=== PATIENT | female | born 1950 | race Caucasian/White ===

== ENCOUNTER 2018-08-17 23:09 | Inpatient (IN) | payer BC, MEDICARE ==
[2018-08-17] MEDS ORDERED: SODIUM CHLORIDE 0.9% 1,000 ML IV STA (23:22)
[2018-08-17] MEDS ORDERED: DILTIAZEM DRIP BOLUS FROM BAG 1 MG SOLN IV ONE (23:22)
--- NOTE | 2018-08-17 23:33 | ED ---
General Adult HPI <Kade Duarte - Last Filed: 08/18/18 03:07> - General Source: EMS, RN notes reviewed, old records reviewed Mode of arrival: EMS Limitations: no limitations <Octavio Jha - Last Filed: 08/18/18 21:57> - General Chief complaint: Shortness of Breath Stated complaint: MAT Time Seen by Provider: 08/17/18 23:21 - History of Present Illness Initial comments: This is a 68-year-old female the ER for evaluation. Patient presents today for evaluation regarding shortness of breath. Patient has had some febrile illness for a few days now. Occasional difficulty or decreased appetite. No nausea or vomiting noted. Patient denies any chest pain. She has history of A. fib does no palpitations currently with elevated heart rate. No recent change in medications. Patient does not take her medications for A. fib with RVR. She chooses not to take these medications. No current fever. No diarrhea (Octavio Jha) - Related Data Previous Rx's Medication Instructions Recorded Flecainide [Tambocor] 50 mg PO Q12HR #180 tab 06/13/16 Metoprolol Tartrate [Lopressor] 25 mg PO TID #270 tab 06/13/16 Allergies Allergy/AdvReac Type Severity Reaction Status Date / Time No Known Allergies Allergy Verified 08/17/18 23:29 Review of Systems ROS Other: All systems not noted in ROS Statement are negative. <Kade Duarte - Last Filed: 08/18/18 03:07> ROS Other: All systems not noted in ROS Statement are negative. <Octavio Jha - Last Filed: 08/18/18 21:57> ROS Statement: Those systems with pertinent positive or pertinent negative responses have been documented in the HPI. 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, IRREG HEART BEAT AT TIMES, 2013 CAME IN WITH RECTAL BLEEDING -COLONOSCOPY WAS NEG-NO PROBLEM SINCE History of Any Multi-Drug Resistant Organisms: None Reported Past Surgical History: Tonsillectomy Additional Past Surgical History / Comment(s): COLONOSCOPY Past Anesthesia/Blood Transfusion Reactions: No Reported Reaction Past Psychological History: No Psychological Hx Reported Smoking Status: Never smoker Past Alcohol Use History: None Reported Past Drug Use History: None Reported - Past Family History Father Family Medical History: Pneumonia Additional Family Medical History / Comment(s): WHEN PT WAS 7 Mother Family Medical History: Cancer Additional Family Medical History / Comment(s): BREAST CANCER AT AGE 79 THEN AT AGE 93 DEVELOPED CHF, LIVED TILL AGE 97 Sister(s) Family Medical History: Cancer Additional Family Medical History / Comment(s): BREAST CANCER AGE 42- BUT FROM LUNG CANCER(ASBESTOES EXPOSURE) <Octavio Jha - Last Filed: 08/18/18 21:57> General Exam Limitations: no limitations General appearance: alert, in no apparent distress Head exam: Present: atraumatic, normocephalic, normal inspection Eye exam: Present: normal appearance, PERRL, EOMI. Absent: scleral icterus, conjunctival injection, periorbital swelling ENT exam: Present: normal exam, mucous membranes moist Neck exam: Present: normal inspection. Absent: tenderness, meningismus, lymphadenopathy Respiratory exam: Present: normal lung sounds bilaterally. Absent: respiratory distress, wheezes, rales, rhonchi, stridor Cardiovascular Exam: Present: tachycardia, irregular rhythm, normal heart sounds. Absent: systolic murmur, diastolic murmur, rubs, gallop, clicks GI/Abdominal exam: Present: soft, tenderness (Right upper quadrant), normal bowel sounds. Absent: distended, guarding, rebound, rigid Extremities exam: Present: normal inspection, full ROM, normal capillary refill. Absent: tenderness, pedal edema, joint swelling, calf tenderness Back exam: Present: normal inspection Neurological exam: Present: alert, oriented X3, CN II-XII intact Psychiatric exam: Present: normal affect, normal mood Skin exam: Present: warm, dry, intact, normal color. Absent: rash <Octavio Jha - Last Filed: 08/18/18 21:57> Vital Signs 08/17/18 08/17/18 08/18/18 23:20 23:21 00:25 Temperature 97.0 F L Pulse Rate 120 H 107 H Pulse Rate [ Plant Technician ] Respiratory 20 20 18 Rate Blood Pressure 110/71 107/73 Blood Pressure [Right Arm] O2 Sat by Pulse 97 96 Oximetry 08/18/18 08/18/18 08/18/18 00:57 01:28 01:33 Temperature 97.7 F Pulse Rate 114 H 104 H Pulse Rate [ 91 Plant Technician ] Respiratory 18 20 20 Rate Blood Pressure 96/71 100/56 Blood Pressure 101/79 [Right Arm] O2 Sat by Pulse 96 97 97 Oximetry 08/18/18 08/18/18 08/18/18 02:22 02:43 02:48 Temperature 96.9 F L Pulse Rate 83 101 H Pulse Rate [ Plant Technician ] Respiratory 19 26 H 26 H Rate Blood Pressure 99/65 75/56 Blood Pressure [Right Arm] O2 Sat by Pulse 95 98 Oximetry 08/18/18 08/18/18 02:51 03:07 Temperature Pulse Rate 79 78 Pulse Rate [ Plant Technician ] Respiratory 22 19 Rate Blood Pressure 101/68 96/61 Blood Pressure [Right Arm] O2 Sat by Pulse 98 97 Oximetry EKG Findings - EKG Comments: EKG Findings:: EKG shows a flutter rate of 119, QRS 70, QTc 396 <Octavio Jha - Last Filed: 08/18/18 21:57> Medical Decision Making - Lab Data Result diagrams: 08/17/18 23:20 08/17/18 23:20 <Kade Duarte - Last Filed: 08/18/18 03:07> - Lab Data Result diagrams: 08/18/18 06:17 08/18/18 06:17 - Radiology Data Radiology results: report reviewed (Chest x-ray negative, ultrasound gallbladder positive cholecystitis), image reviewed <Octavio Jha - Last Filed: 08/18/18 21:57> - Medical Decision Making Prior to patient being transferred to the floor, was informed by nursing staff that the patient was having episodes of hypotension. I requested that the sepsis fluid bolus be completed, had the lactic acid added to the labs, and then discussed the case with the medical orderly and with the shook machine operator. ( Kade Duarte) This is a female the ER for evaluation of shortness of breath. In A. fib with RVR. Patient is symptoms are,. By having also positive acute cholecystitis. We'll admit on IV antibiotics (Octavio Jha) - Lab Data Lab Results 08/17/18 08/17/18 08/17/18 Range/Units 23:20 23:20 23:20 WBC 10.5 (3.8-10.6) k/uL RBC 4.82 (3.80-5.40) m/uL Hgb 14.4 (11.4-16.0) gm/dL Hct 44.1 (34.0-46.0) % MCV 91.6 (80.0-100.0) fL MCH 29.9 (25.0-35.0) pg MCHC 32.7 (31.0-37.0) g/dL RDW 13.8 (11.5-15.5) % Plt Count 249 (150-450) k/uL Neutrophils % 64 % Lymphocytes % 27 % Monocytes % 6 % Eosinophils % 1 % Basophils % 1 % Neutrophils # 6.7 (1.3-7.7) k/uL Lymphocytes # 2.8 (1.0-4.8) k/uL Monocytes # 0.6 (0-1.0) k/uL Eosinophils # 0.2 (0-0.7) k/uL Basophils # 0.1 (0-0.2) k/uL Hypochromasia Slight PT (9.0-12.0) sec INR (<1.2) APTT (22.0-30.0) sec Sodium 139 (137-145) mmol/L Potassium 4.8 (3.5-5.1) mmol/L Chloride 107 (98-107) mmol/L Carbon Dioxide 19 L (22-30) mmol/L Anion Gap 13 mmol/L BUN 20 H (7-17) mg/dL Creatinine 0.91 (0.52-1.04) mg/dL Est GFR (CKD-EPI)AfAm 74 (>60 ml/min/1.73 sqM) Est GFR (CKD-EPI)NonAf 65 (>60 ml/min/1.73 sqM) Glucose 158 H (74-99) mg/dL Calcium 8.9 (8.4-10.2) mg/dL Magnesium 2.3 (1.6-2.3) mg/dL Total Bilirubin 1.4 H (0.2-1.3) mg/dL AST 254 H (14-36) U/L ALT 163 H (9-52) U/L Alkaline Phosphatase 239 H (38-126) U/L Total Creatine Kinase 46 (30-135) U/L CK-MB (CK-2) 0.3 (0.0-2.4) ng/mL CK-MB (CK-2) Rel Index 0.7 Troponin I <0.012 (0.000-0.034) ng/mL Total Protein 7.2 (6.3-8.2) g/dL Albumin 3.9 (3.5-5.0) g/dL Lipase (23-300) U/L TSH 7.680 H (0.465-4.680) mIU/L 08/17/18 08/17/18 Range/Units 23:20 23:20 WBC (3.8-10.6) k/uL RBC (3.80-5.40) m/uL Hgb (11.4-16.0) gm/dL Hct (34.0-46.0) % MCV (80.0-100.0) fL MCH (25.0-35.0) pg MCHC (31.0-37.0) g/dL RDW (11.5-15.5) % Plt Count (150-450) k/uL Neutrophils % % Lymphocytes % % Monocytes % % Eosinophils % % Basophils % % Neutrophils # (1.3-7.7) k/uL Lymphocytes # (1.0-4.8) k/uL Monocytes # (0-1.0) k/uL Eosinophils # (0-0.7) k/uL Basophils # (0-0.2) k/uL Hypochromasia PT 11.2 (9.0-12.0) sec INR 1.2 H (<1.2) APTT 18.8 L (22.0-30.0) sec Sodium (137-145) mmol/L Potassium (3.5-5.1) mmol/L Chloride (98-107) mmol/L Carbon Dioxide (22-30) mmol/L Anion Gap mmol/L BUN (7-17) mg/dL Creatinine (0.52-1.04) mg/dL Est GFR (CKD-EPI)AfAm (>60 ml/min/1.73 sqM) Est GFR (CKD-EPI)NonAf (>60 ml/min/1.73 sqM) Glucose (74-99) mg/dL Calcium (8.4-10.2) mg/dL Magnesium (1.6-2.3) mg/dL Total Bilirubin (0.2-1.3) mg/dL AST (14-36) U/L ALT (9-52) U/L Alkaline Phosphatase (38-126) U/L Total Creatine Kinase (30-135) U/L CK-MB (CK-2) (0.0-2.4) ng/mL CK-MB (CK-2) Rel Index Troponin I (0.000-0.034) ng/mL Total Protein (6.3-8.2) g/dL Albumin (3.5-5.0) g/dL Lipase 60 (23-300) U/L TSH (0.465-4.680) mIU/L Critical Care Time Critical Care Time: Yes Total Critical Care Time: 31 <Octavio Jha - Last Filed: 08/18/18 21:57> Disposition <Kade Duarte - Last Filed: 08/18/18 03:07> Is patient prescribed a controlled substance at d/c from ED?: No <Octavio Jha - Last Filed: 08/18/18 21:57> Clinical Impression: Atrial fibrillation with RVR, Paroxysmal atrial fibrillation, Acute cholecystitis Disposition: ADMITTED IP TO THIS HOSP Condition: Fair
[2018-08-17 23:44] LABS: Basophils # (A) 0.1 k/uL (0-0.2); Basophils % (A) 1 %; Eosinophils # (A) 0.2 k/uL (0-0.7); Eosinophils % (A) 1 %; HCT 44.1 % (34.0-46.0); HGB 14.4 gm/dL (11.4-16.0); Hypochromasia Slight; Lymphocytes # (A) 2.8 k/uL (1.0-4.8); Lymphocytes % (A) 27 %; MCH 29.9 pg (25.0-35.0); MCHC 32.7 g/dL (31.0-37.0); MCV 91.6 fL (80.0-100.0); Mean Platelet Volume 9.4; Monocytes # (A) 0.6 k/uL (0-1.0); Monocytes % (A) 6 %; Neutrophils # (A) 6.7 k/uL (1.3-7.7); Neutrophils % (A) 64 %; Platelet Count 249 k/uL (150-450); RBC 4.82 m/uL (3.80-5.40); RDW 13.8 % (11.5-15.5); WBC 10.5 k/uL (3.8-10.6)
[2018-08-17 23:50] LABS: Albumin 3.9 g/dL (3.5-5.0); Calcium 8.9 mg/dL (8.4-10.2); Magnesium 2.3 mg/dL (1.6-2.3); Potassium 4.8 mmol/L (3.5-5.1); Total Bilirubin 1.4 mg/dL (0.2-1.3); Total Protein 7.2 g/dL (6.3-8.2)
[2018-08-17 23:55] LABS: INR 1.2 (<1.2); Prothrombin Time 11.2 sec (9.0-12.0)
[2018-08-17] MEDS: DILTIAZEM 50 MG in SODIUM CHLORIDE 0.9% 40 ML IV SCH (23:55)
[2018-08-18] LABS: Creatine Kinase 46 U/L (30-135)
--- NOTE | 2018-08-18 00:01 | XR ---
EXAMINATION TYPE: XR chest 2V DATE OF EXAM: 08/17/2018 COMPARISON: 06/11/2016 HISTORY: Irregular heartbeat TECHNIQUE: Frontal and lateral views of the chest are obtained. FINDINGS: The heart appears slightly enlarged. Lungs are clear of infiltrate. There is no heart fail ure. Costophrenic angles are clear. There are chest leads. Bony thorax appears intact. IMPRESSION: Mild cardiomegaly. Heart appears increased compared to old exam.
[2018-08-18 00:13] LABS: Creatine Kinase MB 0.3 ng/mL (0.0-2.4); Troponin I <0.012 ng/mL (0.000-0.034)
[2018-08-18 00:15] LABS: Partial Thromboplastin Time 18.8 sec (22.0-30.0)
[2018-08-18] MEDS ORDERED: SODIUM CHLORIDE 0.9% 1,000 ML IV ONE ×3 (00:45→17:11)
[2018-08-18] MEDS ORDERED: PANTOPRAZOLE 40 MG/10 ML VIAL IVP STA (00:45)
[2018-08-18] MEDS ORDERED: SODIUM CHLORIDE 0.9% 1,000 ML IV STA (00:45)
[2018-08-18] MEDS ORDERED: MORPHINE SULFATE 4 MG/ML SYRINGE IVP STA (00:47)
[2018-08-18] MEDS ORDERED: MORPHINE SULFATE 4 MG/ML SYRINGE IVP PRN (00:47)
--- NOTE | 2018-08-18 00:56 | US ---
EXAMINATION TYPE: US gallbladder DATE OF EXAM: 08/18/2018 COMPARISON: NONE CLINICAL HISTORY: Pain. Pain and weakness. EXAM MEASUREMENTS: Liver Length: 15.8 cm Gallbladder Wall: 0.4 cm CBD: 0.5 cm Right Kidney: 10.0 x 4.2 x 4.6 cm Pancreas: wnl Liver: Increased attenuation Gallbladder: Echogenic foci seen non showing or mobile. Pericholecystic fluid seen. Dilated wall. Evidence for sonographic Kumar's sign: No CBD: wnl Right Kidney: No hydronephrosis or masses seen IMPRESSION: Small gallstones. Pericholecystic fluid suggestive of cholecystitis. No dilated ducts.
[2018-08-18] MEDS ORDERED: AMPICILLIN-SULBACTAM 3 GM in SODIUM CHLORIDE 0.9% 100 ML IVPB ONE (01:00)
[2018-08-18 01:09] LABS: Glucose,Whole Blood 122 mg/dL (75-99)
[2018-08-18] MEDS ORDERED: ONDANSETRON 4 MG/2 ML VIAL IVP STA (01:33)
[2018-08-18 03:53] LABS: Glucose,Whole Blood 148 mg/dL (75-99)
[2018-08-18] MEDS ORDERED: NALOXONE 0.4 MG/ML 1 ML VIAL IV PRN (04:13)
--- NOTE | 2018-08-18 05:42 | P.CONS ---
History of Present Illness - Reason for Consult Consult date: 08/18/18 hypotension, afib with RVR Requesting physician: Rufino Cardenas - Chief Complaint generalized weakness - History of Present Illness 68 year old female with history of P afib , not currently taking any of her medications. Patient presented due to progressive weakness over the past 2 weeks, she thought that she has URI, and all she took was over the counter cough medicine. SHe does not take any of her cardiac medications or the blood thinner. She reports some fever few days ago and symptoms of sore throat and congestion , that has all improved since. However, today she was feeling very weak , could not walk , she also noticed some palpitations, and decided to take some of her old medications. she is not sure what she took (flecainide or metoprolol). However there was no improvement, therefore decided to come to the hospital. denies any fever or abd pain at home, denies any food intolerance, nausea or vomiting, denies any changes in her bowel or urinary habits. denies any focal neurological deficits but felt generalized fatigue and weakness. She otherwise, reports that prior to this event she felt very well, and did not take any medications for very long time. In the ED she was found to be in afib with RVR, and later became hypotensive after starting her on cardizem drip for afib. upon examining her abd in the ED, she had some RUQ pain, Abd US , suggested acute cholecystitis. no biliary dilatation patient was admitted to the ICU due to hypotension , afib RVR, and lactic acidosis . along with elevated liver enzymes suspicious for acute cholangitis Review of Systems Pertinent positives as noted in HPI. 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, IRREG HEART BEAT AT TIMES, 2013 CAME IN WITH RECTAL BLEEDING -COLONOSCOPY WAS NEG-NO PROBLEM SINCE History of Any Multi-Drug Resistant Organisms: None Reported Past Surgical History: Tonsillectomy Additional Past Surgical History / Comment(s): COLONOSCOPY Past Anesthesia/Blood Transfusion Reactions: No Reported Reaction Past Psychological History: No Psychological Hx Reported Smoking Status: Never smoker Past Alcohol Use History: None Reported Past Drug Use History: None Reported - Past Family History Father Family Medical History: Pneumonia Additional Family Medical History / Comment(s): WHEN PT WAS 7 Mother Family Medical History: Cancer Additional Family Medical History / Comment(s): BREAST CANCER AT AGE 79 THEN AT AGE 93 DEVELOPED CHF, LIVED TILL AGE 97 Sister(s) Family Medical History: Cancer Additional Family Medical History / Comment(s): BREAST CANCER AGE 42- BUT FROM LUNG CANCER(ASBESTOES EXPOSURE) Medications and Allergies Home Medications and Allergies Comment(s): currently not taking any of her meds, supposed to be on flecainide, metoprolol, and xarelto Home Medications Medication Instructions Recorded Confirmed Type Flecainide [Tambocor] 50 mg PO Q12HR #180 tab 06/13/16 08/17/18 Rx Metoprolol Tartrate [Lopressor] 25 mg PO TID #270 tab 06/13/16 08/17/18 Rx Allergies Allergy/AdvReac Type Severity Reaction Status Date / Time No Known Allergies Allergy Verified 08/17/18 23:29 Physical Exam Vitals: Vital Signs Temp Pulse Resp BP Pulse Ox 08/18/18 03:07 78 19 96/61 97 08/18/18 02:51 79 22 101/68 98 08/18/18 02:48 26 H 08/18/18 02:43 101 H 26 H 75/56 98 08/18/18 02:22 96.9 F L 83 19 99/65 95 08/18/18 01:33 104 H 20 100/56 97 08/18/18 00:57 114 H 18 96/71 96 08/18/18 00:25 107 H 18 107/73 96 08/17/18 23:21 20 08/17/18 23:20 97.0 F L 120 H 20 110/71 97 Intake and Output 08/17/18 08/17/18 08/18/18 14:59 22:59 06:59 Intake Total 13.5 Balance 13.5 Intake: Intake, IV Titration 13.5 Amount Diltiazem 50 mg In Sodium 13.5 Chloride 0.9% 40 ml @ 5 MG/HR 5 mls/hr IV .Q10H [facility] Rx#:[id number] Other: Weight 81.647 kg Constitutional: No acute distress, conversant, pleasant, well developed Eyes: Anicteric sclerae, moist conjunctiva, no lid-lag Pupils equal round reactive to light ENMT: NC/AT Oropharynx clear, no erythema, or exudates Neck: Supple, FROM, no masses, or JVD No carotid bruits No thyromegaly Lungs: Clear to auscultation Clear to percussion Normal respiratory effort, no accessory muscle use Cardiovascular: Heart irregular in rate and rhythm, No murmurs, gallops, or rubs No peripheral edema Abdominal: Soft, Tenderness to palpation of the RUQ, Kumar's sign positive, voluntary guarding, no rebound or rigidity Normoactive bowel sounds No hepatomegaly, No splenomegaly No palpable mass No abdominal wall hernia noted Skin: Normal temperature, tone, texture, turgor No induration No subcutaneous nodules No rash, lesions No ulcers Extremities: No digital cyanosis No clubbing Pedal pulses intact and symmetrical Radial pulses intact and symmetrical No calf tenderness Psychiatric: Alert and oriented to person, place and time Appropriate affect fair judgment Neuro Muscles Strength 5/5 in all 4 extremities Sensation to light touch grossly present throughout Cranial nerves II-XII grossly intact No focal sensory deficits Lymphatics: no palpable cervical or supraclavicular , or inguinal lymph nodes Results CBC & Chem 7: 08/17/18 23:20 08/17/18 23:20 Labs: Abnormal Lab Results - Last 24 Hours (Table) 08/17/18 08/17/18 08/18/18 Range/Units 23:20 23:20 01:07 INR 1.2 H (<1.2) APTT 18.8 L (22.0-30.0) sec Carbon Dioxide 19 L (22-30) mmol/L BUN 20 H (7-17) mg/dL Glucose 158 H (74-99) mg/dL POC Glucose (mg/dL) 122 H (75-99) mg/dL Plasma Lactic Acid Casimiro (0.7-2.0) mmol/L Total Bilirubin 1.4 H (0.2-1.3) mg/dL AST 254 H (14-36) U/L ALT 163 H (9-52) U/L Alkaline Phosphatase 239 H (38-126) U/L TSH 7.680 H (0.465-4.680) mIU/L 08/18/18 08/18/18 Range/Units 02:20 03:51 INR (<1.2) APTT (22.0-30.0) sec Carbon Dioxide (22-30) mmol/L BUN (7-17) mg/dL Glucose (74-99) mg/dL POC Glucose (mg/dL) 148 H (75-99) mg/dL Plasma Lactic Acid Casimiro 2.4 H* (0.7-2.0) mmol/L Total Bilirubin (0.2-1.3) mg/dL AST (14-36) U/L ALT (9-52) U/L Alkaline Phosphatase (38-126) U/L TSH (0.465-4.680) mIU/L Assessment and Plan Assessment: 68 year old female with history of P afib, admitted as inpatient with anticipated length of stay of >48 hours, due to afib with RVR , acute cholecystitis and hypotension. medicine was consulted for medical management. Plan: P afib with RVR, CHADsVASC =2 patient is not taking any of her medications at home. (flecainide / metoprolol / xarelto) cardizem drip , wean off as tolerated cardiology input regarding her meds patient should be on OAC due to CHADSVASC of 2 Elevated liver enzymes suspected Acute mild cholangitis abd US Acute cholecystits with gall stone, no biliary duct dilatation await Gen Surg input regarding any surgery vs ERCP D/C unasyn, start zosyn due to concerns for acute cholangitis s/p IVF boluses 3 L NS 0.9% continue with IVF Lipase unremarkable Hypotension , most likely due to afib and cardizem , vs Cholangitis wean off cardizem as tolerated s/p IVF boluses , patient received 3 L NS 0.9% Lactic acidosis , secondary to acute infectious process, and hypoperfusion with hypotension s/p IVF boluses follow up [place] Elevated TSH , this is acute phase reactant, could be reactive to above subclinical hypothyroidism check free T4 level follow up outpatient in 6 weeks on TSH DVT PPX heparin sc tid CODE STATUS full code, named her as surrogate decision-maker Thank you for allowing us to participate in the care of this patient. Do not hesitate to contact us with questions. Someone can be reached from the [facility] hospitalist group at all hours of the day at [phone].
[2018-08-18 06:04] VITALS: BMI 34.4
[2018-08-18 06:29] LABS: Basophils % (A) 0 %; Eosinophils # (A) 0.1 k/uL (0-0.7); Eosinophils % (A) 1 %; HCT 44.5 % (34.0-46.0); Hypochromasia Slight; Lymphocytes # (A) 1.1 k/uL (1.0-4.8); Lymphocytes % (A) 12 %; MCH 29.3 pg (25.0-35.0); MCHC 31.5 g/dL (31.0-37.0); MCV 92.9 fL (80.0-100.0); Mean Platelet Volume 8.8; Monocytes # (A) 0.4 k/uL (0-1.0); Monocytes % (A) 5 %; Neutrophils # (A) 7.6 k/uL (1.3-7.7); Neutrophils % (A) 82 %; Platelet Count 214 k/uL (150-450); RBC 4.79 m/uL (3.80-5.40); RDW 13.8 % (11.5-15.5); WBC 9.3 k/uL (3.8-10.6)
[2018-08-18 06:48] LABS: Calcium 7.5 mg/dL (8.4-10.2); Magnesium 2.1 mg/dL (1.6-2.3); Phosphorus 3.6 mg/dL (2.5-4.5); Potassium 4.9 mmol/L (3.5-5.1)
[2018-08-18] MEDS ORDERED: AMPICILLIN-SULBACTAM 3 GM in SODIUM CHLORIDE 0.9% 100 ML IVPB SCH (07:00)
--- NOTE | 2018-08-18 07:09 | XR ---
EXAMINATION TYPE: XR chest 1V DATE OF EXAM: 08/18/2018 HISTORY: Shortness of breath. COMPARISON: 08/17/2018 TECHNIQUE: Single view of the chest is submitted. FINDINGS: Demonstrated are scattered senescent parenchymal change. There is no evidence for focal infiltrate. The heart is stable. Hilar and mediastinal structures are within normal limits. Degenerative changes are seen of the dorsal spine. IMPRESSION: 1. Chronic changes without evidence for acute pulmonary disease.
[2018-08-18 08:12] LABS: Albumin 3.2 g/dL (3.5-5.0); Total Bilirubin 1.7 mg/dL (0.2-1.3); Total Protein 6.2 g/dL (6.3-8.2)
[2018-08-18] MEDS: DILTIAZEM 50 MG in SODIUM CHLORIDE 0.9% 40 ML IV SCH ×2 (08:30→21:34)
[2018-08-18] MEDS ORDERED: FLECAINIDE 50 MG TAB PO SCH (09:00)
[2018-08-18] MEDS: LACTATED RINGERS 1,000 ML IV SCH ×2 (09:30→11:30)
[2018-08-18] MEDS: PIPERACILLIN-TAZOBACTAM 3.375 GM in DEXTROSE/WATER 1 50ML.BAG IVPB SCH ×2 (09:41→19:04)
[2018-08-18] MEDS: HEPARIN SODIUM,PORCINE 5,000 UNIT/ML 1 ML VIAL SQ SCH ×2 (09:41→19:04)
[2018-08-18] MEDS: PANTOPRAZOLE 40 MG/10 ML VIAL IVP SCH (09:41)
[2018-08-18 11:30] LABS: Glucose,Whole Blood 109 mg/dL (75-99)
--- NOTE | 2018-08-18 11:52 | P.GSCN ---
History of Present Illness Consult date: 08/18/18 Reason for Consult: Right upper quadrant pain History of present illness: This 68-year-old female who presented through the emergency room with complaints of some abdominal pain. Patient's workup found have evidence of acute cholecystitis. Patient was admitted to the ICU for hypotension on Cardizem drip. He states her pain is mainly room quadrant. She feels slightly better than she did last night. 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, IRREG HEART BEAT AT TIMES, 2012 CAME IN WITH RECTAL BLEEDING -COLONOSCOPY WAS NEG-NO PROBLEM SINCE History of Any Multi-Drug Resistant Organisms: None Reported Past Surgical History: Tonsillectomy Additional Past Surgical History / Comment(s): COLONOSCOPY Past Anesthesia/Blood Transfusion Reactions: No Reported Reaction Past Psychological History: No Psychological Hx Reported Smoking Status: Never smoker Past Alcohol Use History: None Reported Past Drug Use History: None Reported - Past Family History Father Family Medical History: Pneumonia Additional Family Medical History / Comment(s): WHEN PT WAS 7 Mother Family Medical History: Cancer Additional Family Medical History / Comment(s): BREAST CANCER AT AGE 79 THEN AT AGE 93 DEVELOPED CHF, LIVED TILL AGE 97 Sister(s) Family Medical History: Cancer Additional Family Medical History / Comment(s): BREAST CANCER AGE 42- BUT FROM LUNG CANCER(ASBESTOES EXPOSURE) Medications and Allergies Home Medications Medication Instructions Recorded Confirmed Type Flecainide [Tambocor] 50 mg PO Q12HR #180 tab 06/13/16 08/17/18 Rx Metoprolol Tartrate [Lopressor] 25 mg PO TID #270 tab 06/13/16 08/17/18 Rx Allergies Allergy/AdvReac Type Severity Reaction Status Date / Time No Known Allergies Allergy Verified 08/17/18 23:29 Surgical - Exam Vital Signs Temp Pulse Resp BP Pulse Ox 97.0 F L 120 H 20 110/71 97 08/17/18 23:20 08/17/18 23:20 08/17/18 23:20 08/17/18 23:20 08/17/18 23:20 - General well developed, no distress - Eyes PERRL - ENT normal pinna - Neck no masses - Respiratory normal expansion - Cardiovascular Rhythm: regular - Abdomen Mild recurrent quadrant tenderness Abdomen: soft Results - Labs 08/18/18 06:17 08/18/18 06:17 Abnormal Lab Results - Last 24 Hours (Table) 08/17/18 08/17/18 08/18/18 Range/Units 23:20 23:20 01:07 INR 1.2 H (<1.2) APTT 18.8 L (22.0-30.0) sec Chloride (98-107) mmol/L Carbon Dioxide 19 L (22-30) mmol/L BUN 20 H (7-17) mg/dL Glucose 158 H (74-99) mg/dL POC Glucose (mg/dL) 122 H (75-99) mg/dL Plasma Lactic Acid Casimiro (0.7-2.0) mmol/L Calcium (8.4-10.2) mg/dL Total Bilirubin 1.4 H (0.2-1.3) mg/dL AST 254 H (14-36) U/L ALT 163 H (9-52) U/L Alkaline Phosphatase 239 H (38-126) U/L Total Protein (6.3-8.2) g/dL Albumin (3.5-5.0) g/dL TSH 7.680 H (0.465-4.680) mIU/L 08/18/18 08/18/18 08/18/18 Range/Units 02:20 03:51 06:17 INR (<1.2) APTT (22.0-30.0) sec Chloride 114 H (98-107) mmol/L Carbon Dioxide 19 L (22-30) mmol/L BUN 21 H (7-17) mg/dL Glucose 131 H (74-99) mg/dL POC Glucose (mg/dL) 148 H (75-99) mg/dL Plasma Lactic Acid Casimiro 2.4 H* (0.7-2.0) mmol/L Calcium 7.5 L (8.4-10.2) mg/dL Total Bilirubin 1.7 H (0.2-1.3) mg/dL AST 206 H (14-36) U/L ALT 170 H (9-52) U/L Alkaline Phosphatase 193 H (38-126) U/L Total Protein 6.2 L (6.3-8.2) g/dL Albumin 3.2 L (3.5-5.0) g/dL TSH (0.465-4.680) mIU/L 08/18/18 08/18/18 08/18/18 Range/Units 06:17 10:43 11:28 INR (<1.2) APTT (22.0-30.0) sec Chloride (98-107) mmol/L Carbon Dioxide (22-30) mmol/L BUN (7-17) mg/dL Glucose (74-99) mg/dL POC Glucose (mg/dL) 109 H (75-99) mg/dL Plasma Lactic Acid Casimiro 2.4 H* 4.1 H* (0.7-2.0) mmol/L Calcium (8.4-10.2) mg/dL Total Bilirubin (0.2-1.3) mg/dL AST (14-36) U/L ALT (9-52) U/L Alkaline Phosphatase (38-126) U/L Total Protein (6.3-8.2) g/dL Albumin (3.5-5.0) g/dL TSH (0.465-4.680) mIU/L Diabetes panel 08/17/18 08/18/18 Range/Units 23:20 06:17 Sodium 139 142 (137-145) mmol/L Potassium 4.8 4.9 (3.5-5.1) mmol/L Chloride 107 114 H (98-107) mmol/L Carbon Dioxide 19 L 19 L (22-30) mmol/L BUN 20 H 21 H (7-17) mg/dL Creatinine 0.91 0.88 (0.52-1.04) mg/dL Glucose 158 H 131 H (74-99) mg/dL Calcium 8.9 7.5 L (8.4-10.2) mg/dL AST 254 H 206 H (14-36) U/L ALT 163 H 170 H (9-52) U/L Alkaline Phosphatase 239 H 193 H (38-126) U/L Total Protein 7.2 6.2 L (6.3-8.2) g/dL Albumin 3.9 3.2 L (3.5-5.0) g/dL Thyroid panel 08/17/18 Range/Units 23:20 TSH 7.680 H (0.465-4.680) mIU/L Calcium panel 08/17/18 08/18/18 Range/Units 23:20 06:17 Calcium 8.9 7.5 L (8.4-10.2) mg/dL Phosphorus 3.6 (2.5-4.5) mg/dL Albumin 3.9 3.2 L (3.5-5.0) g/dL Pituitary panel 08/17/18 08/18/18 Range/Units 23:20 06:17 Sodium 139 142 (137-145) mmol/L Potassium 4.8 4.9 (3.5-5.1) mmol/L Chloride 107 114 H (98-107) mmol/L Carbon Dioxide 19 L 19 L (22-30) mmol/L BUN 20 H 21 H (7-17) mg/dL Creatinine 0.91 0.88 (0.52-1.04) mg/dL Glucose 158 H 131 H (74-99) mg/dL Calcium 8.9 7.5 L (8.4-10.2) mg/dL TSH 7.680 H (0.465-4.680) mIU/L Adrenal panel 08/17/18 08/18/18 Range/Units 23:20 06:17 Sodium 139 142 (137-145) mmol/L Potassium 4.8 4.9 (3.5-5.1) mmol/L Chloride 107 114 H (98-107) mmol/L Carbon Dioxide 19 L 19 L (22-30) mmol/L BUN 20 H 21 H (7-17) mg/dL Creatinine 0.91 0.88 (0.52-1.04) mg/dL Glucose 158 H 131 H (74-99) mg/dL Calcium 8.9 7.5 L (8.4-10.2) mg/dL Total Bilirubin 1.4 H 1.7 H (0.2-1.3) mg/dL AST 254 H 206 H (14-36) U/L ALT 163 H 170 H (9-52) U/L Alkaline Phosphatase 239 H 193 H (38-126) U/L Total Protein 7.2 6.2 L (6.3-8.2) g/dL Albumin 3.9 3.2 L (3.5-5.0) g/dL - Imaging US - abdomen: report reviewed (Also the gallbladder shows cholelithiasis with pericholecystic fluid suggestive of acute cholecystitis.) Assessment and Plan Assessment: Acute cholecystitis. Patient has been cleared for surgery by cardiology. We will perform laparoscopic cholecystectomy today.
[2018-08-18 12:04] LABS: Hemoglobin A1C 5.6 % (4.0-6.0)
--- NOTE | 2018-08-18 12:10 | CONS ---
CONSULTATION Mrs. Hernández is a 68-year-old female who is seen for cardiac evaluation. Patient's medical records reviewed. This patient came to the emergency room with symptoms suggestive of upper respiratory tract infection. The patient has been having intermittent fever and sore throat and some nonproductive cough. She did not have any chills in the emergency room. Patient was found to have some abnormal liver enzymes and the right upper quadrant pain and subsequent findings are suggestive of acute cholecystitis, possible cholangitis. The patient has been known to have a history of atrial fibrillation since 2016. 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 She does have a history of a prior stroke in the occipital area. She has a history of hypertension in the past. In the emergency room, patient became hypotensive after the IV Cardizem and she was given a fluid loaded. Her lactic acid was 2.4. PAST MEDICAL HISTORY: Past medical history of atrial fibrillation, colonoscopy, tonsillectomy, and history of stroke. MEDICATIONS: None at home. PHYSICAL EXAMINATION: Physical examination at present reveals a 68-year-old obesely built female who does not appear to be in any acute distress. The patient's heart rate is 90 to 100 per minute, blood pressure is 100/61 mmHg. Head/ENT examination is negative. Neck is supple. There is no increase in jugular venous pressure. Both the carotid pulses are felt. There is no bruit. Chest is symmetrical. HEART: The PMI is not felt. First and second heart sounds are normal. Lungs are clinically clear to auscultation and percussion. Abdomen is soft. EXTREMITIES: Peripheral pulsations are 2+. Patient's hemoglobin is 14.0. The patient's 2 sets of lactic acid are 2.4. The patient has been getting extra boluses of saline. FINAL IMPRESSION: This patient is admitted with acute cholecystitis and possibly acute tracheobronchitis. The patient has an elevated lactic acid. She is receiving IV fluids. At present, patient is stable cardiac morlaes. Patient's heart rate is in the range of 100 and the blood pressure is in the range of 100. We will review the patient's echocardiogram. Previous echocardiogram has revealed normal left ventricular systolic function. I would recommend to continue the small dose of Cardizem drip during the Surgery. The patient may receive intermittent small doses of IV Lopressor if she develops any significant tachycardia during the surgery. We will start the patient on IV heparin and stop the heparin 4 hours prior to surgery. The patient will need to go back and stop the heparin 4 hours prior to surgery. Patient will need to go back on oral anticoagulation after the surgery. TABBY / CHRISTINE: [id number] /
--- NOTE | 2018-08-18 12:17 | P.CNPUL ---
History of Present Illness Consult date: 08/18/18 Requesting physician: Janes Gusman Reason for consult: other (IC management, patient was admitted with atrial fibrillation, RVR, and acute cholecystitis.) Chief complaint: Generalized weakness, cough and fever. History of present illness: Patient presented due to progressive weakness over the past 2 weeks, she thought that she has URI, and all she took was over the counter cough medicine. SHe does not take any of her cardiac medications or the blood thinner. She reports some fever few days ago and symptoms of sore throat and congestion , that has all improved since. However, today she was feeling very weak , could not walk , she also noticed some palpitations, and decided to take some of her old medications. she is not sure what she took (flecainide or metoprolol). However there was no improvement, therefore decided to come to the hospital. denies any fever or abd pain at home, denies any food intolerance, nausea or vomiting, denies any changes in her bowel or urinary habits. denies any focal neurological deficits but felt generalized fatigue and weakness. She otherwise, reports that prior to this event she felt very well, and did not take any medications for very long time. In the ED she was found to be in afib with RVR, and later became hypotensive after starting her on cardizem drip for afib. upon examining her abd in the ED, she had some RUQ pain, Abd US , suggested acute cholecystitis. no biliary dilatation patient was admitted to the ICU due to hypotension , afib RVR, and lactic acidosis . along with elevated liver enzymes suspicious for acute cholangitis. Patient wasn't ready seen by surgery on consultation, however considering the atrial fibrillation and her cardiac condition, patient will definitely need cardiac clearance before any surgery is considered. She is now in the ICU, comfortable, on Cardizem drip, hemodynamically stable, rate seems to be well- controlled symptoms morales, the patient has mostly cough and weakness, again the cough is nonproductive, she has generalized weakness, she had a low-grade temp on admission, no headache no blurred vision no dizziness no nausea no vomiting no abdominal pain no melena no hematemesis no dysuria and no frequency no urgency. 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, IRREG HEART BEAT AT TIMES, 2013 CAME IN WITH RECTAL BLEEDING -COLONOSCOPY WAS NEG-NO PROBLEM SINCE History of Any Multi-Drug Resistant Organisms: None Reported Past Surgical History: Tonsillectomy Additional Past Surgical History / Comment(s): COLONOSCOPY Past Anesthesia/Blood Transfusion Reactions: No Reported Reaction Past Psychological History: No Psychological Hx Reported Smoking Status: Never smoker Past Alcohol Use History: None Reported Past Drug Use History: None Reported - Past Family History Father Family Medical History: Pneumonia Additional Family Medical History / Comment(s): WHEN PT WAS 7 Mother Family Medical History: Cancer Additional Family Medical History / Comment(s): BREAST CANCER AT AGE 79 THEN AT AGE 93 DEVELOPED CHF, LIVED TILL AGE 97 Sister(s) Family Medical History: Cancer Additional Family Medical History / Comment(s): BREAST CANCER AGE 42- BUT FROM LUNG CANCER(ASBESTOES EXPOSURE) Medications and Allergies Home Medications Medication Instructions Recorded Confirmed Type Flecainide [Tambocor] 50 mg PO Q12HR #180 tab 06/13/16 08/17/18 Rx Metoprolol Tartrate [Lopressor] 25 mg PO TID #270 tab 06/13/16 08/17/18 Rx Allergies Allergy/AdvReac Type Severity Reaction Status Date / Time No Known Allergies Allergy Verified 08/17/18 23:29 Physical Exam Vitals: Vital Signs Temp Pulse Pulse Resp BP BP Pulse Ox 08/18/18 07:40 96 08/18/18 05:11 19 08/18/18 03:07 78 19 96/61 97 08/18/18 02:51 79 22 101/68 98 08/18/18 02:48 26 H 08/18/18 02:43 101 H 26 H 75/56 98 08/18/18 02:22 96.9 F L 83 19 99/65 95 08/18/18 01:33 104 H 20 100/56 97 08/18/18 01:28 97.7 F 91 20 101/79 97 08/18/18 00:57 114 H 18 96/71 96 08/18/18 00:25 107 H 18 107/73 96 08/17/18 23:21 20 08/17/18 23:20 97.0 F L 120 H 20 110/71 97 Intake and Output 08/17/18 08/18/18 08/18/18 22:59 06:59 14:59 Intake Total 213.5 14.708 Balance 213.5 14.708 Intake: IV 200 Sodium Chloride 0.9% 1, 200 000 ml @ 100 mls/hr IV . Q10H ONE Rx#:[id number] Intake, IV Titration 13.5 14.708 Amount Diltiazem 50 mg In Sodium 13.5 14.708 Chloride 0.9% 40 ml @ 5 MG/HR 5 mls/hr IV .Q10H STEVEN Rx#:[id number] Other: Weight 91 kg Physical Exam: Revealed a 68-year-old female in no distress. Head: Atraumatic, normocephalic. HEENT:[Neck is supple.] [No neck masses.] [No thyromegaly.] [No JVD.] Chest: [Minimal fine crackles at the left base, no rhonchi, no wheezes. Cardiac Exam: Irregular irregular rhythm. Normal S1 and S2, no S3 gallop, no murmur.] Abdomen: [Soft, nontender, no megaly, no rebound, no guarding, normal bowel sounds.] Extremities: [No clubbing, no edema, no cyanosis.] Neurological Exam: [No focal neurologic deficit.] Lymphatics: No lymphadenopathy. Psychiatric: Normal mood, affect and mental status examination. Results - Laboratory Findings CBC and BMP: 08/18/18 06:17 08/18/18 06:17 PT/INR, D-dimer PT 11.2 sec (9.0-12.0) 08/17/18 23:20 INR 1.2 (<1.2) H 08/17/18 23:20 Abnormal lab findings: Abnormal Labs 08/17/18 08/17/18 08/18/18 23:20 23:20 01:07 INR 1.2 H APTT 18.8 L Chloride Carbon Dioxide 19 L BUN 20 H Glucose 158 H POC Glucose (mg/dL) 122 H Plasma Lactic Acid Casimiro Calcium Total Bilirubin 1.4 H AST 254 H ALT 163 H Alkaline Phosphatase 239 H Total Protein Albumin TSH 7.680 H 08/18/18 08/18/18 08/18/18 02:20 03:51 06:17 INR APTT Chloride 114 H Carbon Dioxide 19 L BUN 21 H Glucose 131 H POC Glucose (mg/dL) 148 H Plasma Lactic Acid Casimiro 2.4 H* Calcium 7.5 L Total Bilirubin 1.7 H AST 206 H ALT 170 H Alkaline Phosphatase 193 H Total Protein 6.2 L Albumin 3.2 L TSH 08/18/18 08/18/18 08/18/18 06:17 10:43 11:28 INR APTT Chloride Carbon Dioxide BUN Glucose POC Glucose (mg/dL) 109 H Plasma Lactic Acid Casimiro 2.4 H* 4.1 H* Calcium Total Bilirubin AST ALT Alkaline Phosphatase Total Protein Albumin TSH - Diagnostic Findings Chest x-ray: image reviewed (Chronic parenchymal changes, no evidence of active disease noted presently.) Assessment and Plan Assessment: Impression: 1 atrial fibrillation with RVR, presently on Cardizem drip, cardiology was consulted. 2 elevated liver enzymes, abnormal ultrasound of the gallbladder, possible acute cholecystitis, patient is presently on antibiotics in the form of Zosyn, and she is being evaluated by general surgery. 3 acute tracheobronchitis, patient is presently on antibiotics which will cover her symptoms of tracheobronchitis. 4 acute hypotension on presentation secondary to atrial fibrillation RVR and Cardizem. Could also be related to sepsis. Primary source is most likely related to her gallbladder findings/acute cholecystitis. 5 acute lactic acidosis on presentation, could be related to cholecystitis, and sepsis. Recommendation: Continue antibiotics, continue Cardizem for control of atrial fibrillation/RVR, cardiology and general surgery evaluation, patient is definitely high surgical risk, however the patient will need clearance by cardiology before going for surgery. We'll continue to follow. Time with Patient: Greater than 30
--- NOTE | 2018-08-18 12:35 | ECHOF ---
Referral Reason:shortness of breath, chf MEASUREMENTS -------- HEIGHT: 162.6 cm WEIGHT: 90.7 kg BP: 108/67 RVIDd: 3.8 cm (< 3.3) IVSd: 1.3 cm (0.6 - 1.1) LVIDd: 4.1 cm (3.9 - 5.3) LVPWd: 1.2 cm (0.6 - 1.1) IVSs: 1.4 cm LVIDs: 3.2 cm LVPWs: 1.3 cm LA Diam: 4.3 cm (2.7 - 3.8) LAESV Index (A-L): 35.08 ml/m Ao Diam: 3.2 cm (2.0 - 3.7) AV Cusp: 1.7 cm (1.5 - 2.6) LA Diam: 4.0 cm (2.7 - 3.8) MV EXCURSION: 14.447 mm (> 18.000) MV EF SLOPE: 60 mm/s (70 - 150) EPSS: 0.7 cm RAP: 5.00 mmHg RVSP: 18.36 mmHg FINDINGS -------- Atrial fibrillation. This was a techncally difficult study with suboptimal views, , Lumason utilized for enhancement of im ages. The left ventricular size is normal. Left ventricular wall thickness is normal. Overall left vent ricular systolic function is moderate-severely impaired with, an EF between 30 - 35 %. The right ventricle is moderate to severely enlarged. The left atrium is moderately dilated. The right atrial size is normal. 5.0mg OF Lumason UTLIZED: 2 OR MORE WALL SEGMENTS NOT VISUALIZED. The aortic valve is trileaflet, and appears structurally normal. No aortic stenosis or regurgitation. Mild mitral annular calcification present. Moderate mitral regurgitation is present. Moderate tricuspid regurgitation present. Right ventricular systolic pressure is normal at < 35 mmH g. There is no evidence of pulmonary hypertension. Trace/mild (physiologic) pulmonic regurgitation. The aortic root size is normal. There is no pericardial effusion. CONCLUSIONS -------- 1. This was a techncally difficult study with suboptimal views, , Lumason utilized for enhancement of images. 2. The left ventricular size is normal. 3. Left ventricular wall thickness is normal. 4. Overall left ventricular systolic function is moderate-severely impaired with, an EF between 30 - 35 %. 5. The right ventricle is moderate to severely enlarged. 6. The left atrium is moderately dilated. 7. The right atrial size is normal. 8. 5.0mg OF Lumason UTLIZED: 2 OR MORE WALL SEGMENTS NOT VISUALIZED. 9. The aortic valve is trileaflet, and appears structurally normal. No aortic stenosis or regurgitati on. 10. Mild mitral annular calcification present. 11. Moderate mitral regurgitation is present. 12. Moderate tricuspid regurgitation present. 13. Right ventricular systolic pressure is normal at < 35 mmHg. 14. There is no evidence of pulmonary hypertension. 15. Trace/mild (physiologic) pulmonic regurgitation. 16. The aortic root size is normal. 17. There is no pericardial effusion. MACHINE MAINTENANCE: Amanda Hearn RDCS
[2018-08-18] MEDS ORDERED: PHENYLEPHRINE-0.9% NACL SYG 1 MG/10 ML SYRINGE ONE (14:47)
[2018-08-18] MEDS ORDERED: PROPOFOL 10 MG/ML 20 ML VIAL IV ONE ×2 (14:47)
[2018-08-18] MEDS ORDERED: LIDOCAINE 1% INJ 10MG/ML (20 ML MDV) ONE (14:47)
[2018-08-18] MEDS ORDERED: fentaNYL (PF) 50 MCG/ML 2 ML AMP ONE (14:47)
[2018-08-18] MEDS ORDERED: MIDAZOLAM 2 MG/2 ML VIAL ONE (14:47)
[2018-08-18] MEDS ORDERED: ROCURONIUM BROMIDE 10 MG/ML 10 ML VIAL IV ONE (14:47)
[2018-08-18] MEDS ORDERED: GLYCOPYRROLATE 0.2 MG/ML 2 ML VIAL ONE (14:47)
[2018-08-18] MEDS ORDERED: NEOSTIGMINE 1 MG/ML 10 ML VIAL ONE (14:47)
[2018-08-18] MEDS ORDERED: BUPIVACAIN-EPI 0.5%-1:200,000 30 ML VIAL SQ ONE (15:08)
[2018-08-18] MEDS ORDERED: LACTATED RINGERS 1,000 ML IV ONE (15:09)
--- NOTE | 2018-08-18 15:30 | P.OP ---
Date of Procedure: 08/18/18 Preoperative Diagnosis: Acute cholecystitis Postoperative Diagnosis: Acute cholecystitis Procedure(s) Performed: Laparoscopic cholecystectomy Anesthesia: CANDICE Surgeon: Manjinder Mcallister Estimated Blood Loss (ml): 5 Pathology: other (Gallbladder) Condition: stable Disposition: PACU Description of Procedure: The patient was placed on the operating table. The patient received a general endotracheal tube anesthesia. The patients abdomen was prepped and draped in the usual sterile fashion. Through an infraumbilical stab incision, the fascia of the anterior abdominal wall was grasped with a pair of Kochers and then the Veress needle was placed in the peritoneal cavity. Position of the Veress needle was confirmed with positive drop test. The abdomen was then insufflated. After adequate insufflation, the 10 mm trocar was placed in the peritoneal cavity. Following this the laparoscope was placed in the peritoneal cavity. The patient was placed in the head-up, right side up position and then a 5 mm trocar was placed in the right lateral and right subcostal position under direct visualization. A 8 mm trocar was placed in the epigastric position. The gallbladder was very edematous. The gallbladder was grasped in the fundus and infundibulum. Traction on the gallbladder was placed in the lateral and the cephalad positions. The triangle of Calot was visualized.. The cystic duct was bluntly dissected until the union of the cystic duct and common bile duct was seen. The cystic duct was then divided and sealed with the Harmonic scissors. A PDS Endoloop was then placed throughout the cystic duct stump. The cystic artery divided and sealed with the Harmonic scissors. The gallbladder was then removed from the liver bed using Harmonic scissors. The gallbladder was then extracted through the epigastric port site. Operative field was checked for any bleeding spots and Harmonic scissors was used to coagulate the liver bed. The abdomen was irrigated. The trocars were removed. The skin was closed using interrupted 3- 0 Vicryl suture. Dermabond dressing were applied. The patient tolerated the procedure well.
[2018-08-18] MEDS ORDERED: FUROSEMIDE 10 MG/ML 2 ML VIAL IV ONE (16:54)
--- NOTE | 2018-08-18 17:33 | P.PN ---
Progress Note - Text Progress Note Date: 08/18/18 (Delayed charting pateint seen at approximately 9 am) Hospitalist interval note: Patient seen and examined at bedside. No chest pain or syncopal episodes. She has been having some progressive shortness of breath and weakness. She reports that she has not seen a bacteriology technician or primary care physician in approximately 2 years. She has been taking her metoprolol and flecainide on "as-needed basis " when she feels like she is having palpitations. We discussed the importance of continuing these medications regularly and she do not always feel palpitations in her heart rate is elevated. She exhibited signs of congestive heart failure. I ordered an urgent echocardiogram for cardiology to review prior to surgery today. I recommend limiting fluid resuscitation on an as needed basis. May need to transition off of Cardizem drip if low ejection fraction is noted on echocardiogram. Will continue to follow. Nurse up dated. For full not from today please see consult by Dr. Gusman.
[2018-08-18] MEDS ORDERED: HYDROcodone/APAP 5-325MG 1 EACH TAB PO PRN (18:07)
[2018-08-18 19:52] LABS: Glucose,Whole Blood 120 mg/dL (75-99)
[2018-08-18] MEDS ORDERED: METOPROLOL TARTRATE 25 MG TAB PO SCH (21:00)
[2018-08-18 23:30] LABS: Appearance,Urine Clear (Clear); Bacteria,Urine Rare /hpf; Bilirubin,Urine Negative (Negative); Blood,Urine Trace (Negative); Color,Urine Yellow; Glucose,Urine (UA) Negative (Negative); Ketones,Urine Trace (Negative); Leukocyte Esterase,Urine Small (Negative); Mucus,Urine Rare /hpf; Nitrite,Urine Negative (Negative); Protein,Urine Negative (Negative); RBC,Urine 2 /hpf (0-5); Specific Gravity,Urine 1.016 (1.001-1.035); Squamous Epithelial Cell,Urine <1 /hpf (0-4); Urobilinogen,Urine <2.0 mg/dL (<2.0); WBC,Urine 9 /hpf (0-5)
[2018-08-19] MEDS: HEPARIN SODIUM,PORCINE 5,000 UNIT/ML 1 ML VIAL SQ SCH ×4 (01:25→23:12)
[2018-08-19] MEDS: PIPERACILLIN-TAZOBACTAM 3.375 GM in DEXTROSE/WATER 1 50ML.BAG IVPB SCH ×4 (01:25→23:19)
[2018-08-19 04:41] LABS: Basophils # (A) 0.1 k/uL (0-0.2); Basophils % (A) 0 %; Eosinophils # (A) 0.2 k/uL (0-0.7); Eosinophils % (A) 1 %; HCT 39.3 % (34.0-46.0); HGB 12.3 gm/dL (11.4-16.0); Hypochromasia Slight; Lymphocytes # (A) 1.7 k/uL (1.0-4.8); Lymphocytes % (A) 13 %; MCH 29.4 pg (25.0-35.0); MCHC 31.2 g/dL (31.0-37.0); MCV 94.1 fL (80.0-100.0); Mean Platelet Volume 8.7; Monocytes # (A) 0.9 k/uL (0-1.0); Monocytes % (A) 6 %; Neutrophils # (A) 10.7 k/uL (1.3-7.7); Neutrophils % (A) 78 %; Platelet Count 202 k/uL (150-450); RBC 4.17 m/uL (3.80-5.40); RDW 14.1 % (11.5-15.5); WBC 13.7 k/uL (3.8-10.6)
[2018-08-19 05:12] LABS: Calcium 7.4 mg/dL (8.4-10.2); Phosphorus 2.9 mg/dL (2.5-4.5); Potassium 4.3 mmol/L (3.5-5.1)
[2018-08-19 05:26] LABS: T4, Free (Free Thyroxine) 1.15 ng/dL (0.78-2.19)
[2018-08-19] MEDS: DILTIAZEM 50 MG in SODIUM CHLORIDE 0.9% 40 ML IV SCH (05:55)
--- NOTE | 2018-08-19 06:46 | XR ---
EXAMINATION TYPE: XR chest 1V DATE OF EXAM: 08/19/2018 HISTORY: shortness of breath. REFERENCE: Previous study dated 08/18/2018. FINDINGS: There is worsening left basilar airspace disease. There are small, bilateral effusions. Hea rt size is within normal limits. IMPRESSION: 1. WORSENING LEFT BASILAR ATELECTASIS. 2. SMALL, BILATERAL EFFUSIONS.
[2018-08-19] MEDS: FUROSEMIDE 10 MG/ML 4 ML VIAL IV SCH (09:22)
[2018-08-19] MEDS: PANTOPRAZOLE 40 MG/10 ML VIAL IVP SCH (09:23)
[2018-08-19] MEDS: METOPROLOL TARTRATE 50 MG TAB PO SCH ×2 (09:23→21:02)
--- NOTE | 2018-08-19 10:03 | P.PN ---
Progress Note - Text Progress Note Date: 08/19/18 The patient's resting comfortably in bed. She is tolerating a regular diet. She has minimal complaints of abdominal pain. On exam her vital signs are stable. Her abdomen soft. Incision sites are clean dry and intact. Status post laparoscopic ostectomy for acute cholecystitis. Patient will be discharged out of the ICU after being evaluated by Dr. Dejesus and the work checker.
--- NOTE | 2018-08-19 11:08 | P.PN ---
Subjective Progress Note Date: 08/19/18 Principal diagnosis: Acute sepsis secondary to acute cholecystitis, paroxysmal atrial fibrillation with RVR. History of present illness: Patient presented due to progressive weakness over the past 2 weeks, she thought that she has URI, and all she took was over the counter cough medicine. SHe does not take any of her cardiac medications or the blood thinner. She reports some fever few days ago and symptoms of sore throat and congestion , that has all improved since. However, today she was feeling very weak , could not walk , she also noticed some palpitations, and decided to take some of her old medications. she is not sure what she took (flecainide or metoprolol). However there was no improvement, therefore decided to come to the hospital. denies any fever or abd pain at home, denies any food intolerance, nausea or vomiting, denies any changes in her bowel or urinary habits. denies any focal neurological deficits but felt generalized fatigue and weakness. She otherwise, reports that prior to this event she felt very well, and did not take any medications for very long time. In the ED she was found to be in afib with RVR, and later became hypotensive after starting her on cardizem drip for afib. upon examining her abd in the ED, she had some RUQ pain, Abd US , suggested acute cholecystitis. no biliary dilatation patient was admitted to the ICU due to hypotension , afib RVR, and lactic acidosis . along with elevated liver enzymes suspicious for acute cholangitis. Patient wasn't ready seen by surgery on consultation, however considering the atrial fibrillation and her cardiac condition, patient will definitely need cardiac clearance before any surgery is considered. She is now in the ICU, comfortable, on Cardizem drip, hemodynamically stable, rate seems to be well- controlled symptoms morales, the patient has mostly cough and weakness, again the cough is nonproductive, she has generalized weakness, she had a low-grade temp on admission, no headache no blurred vision no dizziness no nausea no vomiting no abdominal pain no melena no hematemesis no dysuria and no frequency no urgency. Patient was reevaluated today on 08/19/2018., She is now status post laparoscopic cholecystectomy done late in the afternoon yesterday after the patient was cleared by cardiology. Patient was noted to have acute cholecystitis, her perioperative course has been quite uneventful. Patient is doing well at present, hemodynamically stable, in atrial fibrillation but rate controlled. Labs were reviewed, WBC count is 13.7, hemoglobin is 12.3. Electrolytes and basic metabolic profile are relatively normal. Chest x-ray showed minimal left basilar atelectasis and small bilateral effusions. Patient will receive a Lasix dose today. Objective - Vital Signs Vital signs: Vital Signs Temp 97.2 F L 08/19/18 04:00 Pulse 106 H 08/19/18 06:00 Resp 17 08/19/18 06:00 BP 114/76 08/18/18 17:10 Pulse Ox 99 08/19/18 06:00 Intake & Output 08/18/18 08/19/18 08/19/18 18:59 06:59 18:59 Intake Total 3259.708 391.250 Output Total 500 1175 Balance 2759.708 -783.750 Weight 94.1 kg Intake: IV 1170 340.0 Piperacillin-Tazobactam 3 100.0 .375 gm In Dextrose/Water 1 50ml.bag @ 12.5 mls/hr IVPB Q8HR [facility] Rx#: [id number] Sodium Chloride 0.9% 1, 720 240 000 ml @ 100 mls/hr IV . Q10H [facility] Rx#:[id number] Intake, IV Titration 2089.708 51.250 Amount Diltiazem 50 mg In Sodium 14.708 38.750 Chloride 0.9% 40 ml @ 5 MG/HR 5 mls/hr IV .Q10H [facility] Rx#:[id number] Lactated Ringers 1,000 ml 2000 @ 999 mls/hr IV .Q1H1M [facility] Rx#:[id number] Piperacillin-Tazobactam 3 75.0 12.5 .375 gm In Dextrose/Water 1 50ml.bag @ 12.5 mls/hr IVPB Q8HR [facility] Rx#: [id number] Output: Urine 475 1175 Estimated Blood Loss 25 Other: Voiding Method Indwelling Catheter Indwelling Catheter # Voids 1 # Bowel Movements 1 ABP, PAP, CO, CI - Last Documented Arterial Blood Pressure 108/67 - Exam Physical Exam: 68-year-old female, very pleasant, asymptomatic, and in no distress. Head: Relatively unremarkable. HEENT:[Neck is supple.] [No neck masses.] [No thyromegaly.] [No JVD.] PERRLA, EOMI, no icterus. Chest: [Crackles at the bases especially at the left base noted..] Cardiac Exam: [Normal S1 and S2, no S3 gallop, no murmur.] Abdomen: [Postsurgical, soft, slightly tender, no rebound, no guarding. Extremities: [No clubbing, no edema, no cyanosis.] Neurological Exam: [No focal neurologic deficit.] Psychiatric: Normal mood, affect and mental status - Labs CBC & Chem 7: 08/19/18 04:30 08/19/18 04:30 Labs: Abnormal Lab Results - Last 24 Hours (Table) 08/18/18 08/18/18 08/18/18 Range/Units 10:43 11:28 14:45 WBC (3.8-10.6) k/uL Neutrophils # (1.3-7.7) k/uL Chloride (98-107) mmol/L Carbon Dioxide (22-30) mmol/L BUN (7-17) mg/dL Glucose (74-99) mg/dL POC Glucose (mg/dL) 109 H (75-99) mg/dL Plasma Lactic Acid Casimiro 4.1 H* 2.8 H* (0.7-2.0) mmol/L Calcium (8.4-10.2) mg/dL Urine Ketones (Negative) Urine Blood (Negative) Ur Leukocyte Esterase (Negative) Urine WBC (0-5) /hpf Urine Bacteria (None) /hpf Urine Mucus (None) /hpf 08/18/18 08/18/18 08/19/18 Range/Units 19:50 23:10 04:30 WBC 13.7 H (3.8-10.6) k/uL Neutrophils # 10.7 H (1.3-7.7) k/uL Chloride (98-107) mmol/L Carbon Dioxide (22-30) mmol/L BUN (7-17) mg/dL Glucose (74-99) mg/dL POC Glucose (mg/dL) 120 H (75-99) mg/dL Plasma Lactic Acid Casimiro (0.7-2.0) mmol/L Calcium (8.4-10.2) mg/dL Urine Ketones Trace H (Negative) Urine Blood Trace H (Negative) Ur Leukocyte Esterase Small H (Negative) Urine WBC 9 H (0-5) /hpf Urine Bacteria Rare H (None) /hpf Urine Mucus Rare H (None) /hpf 08/19/18 Range/Units 04:30 WBC (3.8-10.6) k/uL Neutrophils # (1.3-7.7) k/uL Chloride 114 H (98-107) mmol/L Carbon Dioxide 21 L (22-30) mmol/L BUN 21 H (7-17) mg/dL Glucose 104 H (74-99) mg/dL POC Glucose (mg/dL) (75-99) mg/dL Plasma Lactic Acid Casimiro (0.7-2.0) mmol/L Calcium 7.4 L (8.4-10.2) mg/dL Urine Ketones (Negative) Urine Blood (Negative) Ur Leukocyte Esterase (Negative) Urine WBC (0-5) /hpf Urine Bacteria (None) /hpf Urine Mucus (None) /hpf Microbiology - Last 24 Hours (Table) 08/17/18 23:20 Blood Culture - Preliminary Blood No Growth after 24 hours Assessment and Plan Assessment: Impression: 1 atrial fibrillation with RVR, responded to Cardizem, patient was seen and addressed by cardiology cleared for surgery. 2 elevated liver enzymes, abnormal ultrasound of the gallbladder, consistent with acute systolic cholecystitis. 3 acute tracheobronchitis, patient is presently on antibiotics which will cover her symptoms of tracheobronchitis. 4 acute sepsis secondary to acute cellulitis with hypotension which is related to the sepsis also related to her atrial fibrillation with RVR on presentation. 5 acute lactic acidosis on presentation, related to acute cholecystitis, and sepsis. 6 status post laparoscopic cholecystectomy, postoperative day #1 Recommendation: Continue antibiotics, gentle diuresis and the patient is developing a small left pleural effusion, likely transfer out of the ICU to a monitor bed on selective today. Time with Patient: Less than 30
[2018-08-19] MEDS ORDERED: DIGOXIN 250 MCG/ML 2 ML AMP IVP ONE ×2 (12:00→18:00)
[2018-08-19] MEDS: SPIRONOLACTONE 25 MG TAB PO SCH (13:25)
[2018-08-19] MEDS: LISINOPRIL 2.5 MG TAB PO SCH (13:26)
--- NOTE | 2018-08-19 13:45 | P.PN ---
Subjective Progress Note Date: 08/19/18 (delayed charting patiet seen at 0930) Principal diagnosis: Shortness of breath Is a 68-year-old female with a past history of paroxysmal atrial fibrillation, rectal bleeding, and obesity who presented to the ER with complaints of upper respiratory. The ER she underwent an extensive evaluation. She was initially found the nature of the rapid ventricular response and later became hypotensive after starting her Cardizem drip. Upon examination in the ER she had a right upper quadrant pain underwent ultrasound which suggested acute cholecystitis. She was admitted to the ICU. She underwent an echocardiogram which showed an ejection fraction of 30-35%. She was seen by cardiology. She was taken to the OR for laparoscopic cholecystectomy by Dr. Mcallister on 08/18. She was given a dose of oral metoprolol on her Cardizem drip was stopped on the evening of 08/18 after her echocardiogram results were reviewed. Patient seen and examined at bedside. She is still having some shortness of breath when she is up and moving. No chest pain or palpitations. No nausea or vomiting. Belly pain is well controlled. Objective - Vital Signs Vital signs: Vital Signs Temp 97.2 F L 08/19/18 04:00 Pulse 110 H 08/19/18 11:00 Resp 42 H 08/19/18 11:00 BP 114/76 08/18/18 17:10 Pulse Ox 99 08/19/18 11:00 Intake & Output 08/18/18 08/19/18 08/19/18 18:59 06:59 18:59 Intake Total 3259.708 391.250 150 Output Total 500 1175 360 Balance 2759.708 -783.750 -210 Weight 94.1 kg 94.1 kg Intake: IV 1170 340.0 50 Piperacillin-Tazobactam 3 100.0 50 .375 gm In Dextrose/Water 1 50ml.bag @ 12.5 mls/hr IVPB Q8HR [facility] Rx#: [id number] Sodium Chloride 0.9% 1, 720 240 000 ml @ 100 mls/hr IV . Q10H [facility] Rx#:[id number] Intake, IV Titration 2089.708 51.250 100 Amount Diltiazem 50 mg In Sodium 14.708 38.750 Chloride 0.9% 40 ml @ 5 MG/HR 5 mls/hr IV .Q10H [facility] Rx#:[id number] Lactated Ringers 1,000 ml 2000 @ 999 mls/hr IV .Q1H1M [facility] Rx#:[id number] Piperacillin-Tazobactam 3 75.0 12.5 .375 gm In Dextrose/Water 1 50ml.bag @ 12.5 mls/hr IVPB Q8HR [facility] Rx#: [id number] Sodium Chloride 0.9% 1, 100 000 ml @ 0 mls/hr IV .[facility] Rx#:[id number] Output: Urine 475 1175 360 Estimated Blood Loss 25 Other: Voiding Method Indwelling Catheter Indwelling Catheter Indwelling Catheter # Voids 1 1 # Bowel Movements 1 ABP, PAP, CO, CI - Last Documented Arterial Blood Pressure 111/70 - Exam General: Ill appearing, no distress, appears at stated age Derm: warm, dry Head: atraumatic, normocephalic, symmetric Eyes: EOMI, no lid lag, anicteric sclera Mouth: no lip lesion, mucus membranes moist Cardiovascular: S1-S2 irregular, no murmur, positive posterior tibial pulse bilateral, Lungs: Crackles bilateral bases, no rhonchi, no rales , no accessory muscle use Abdominal: soft, tender to palpation right upper quadrant, no guarding, no appreciable organomegaly Ext: no gross muscle atrophy, no edema, no contractures Neuro: CN II-XI grossly intact, no focal neuro deficits Psych: Alert, oriented, appropriate affect - Labs CBC & Chem 7: 08/19/18 04:30 08/19/18 04:30 Labs: Abnormal Lab Results - Last 24 Hours (Table) 08/18/18 08/18/18 08/18/18 Range/Units 14:45 19:50 23:10 WBC (3.8-10.6) k/uL Neutrophils # (1.3-7.7) k/uL Chloride (98-107) mmol/L Carbon Dioxide (22-30) mmol/L BUN (7-17) mg/dL Glucose (74-99) mg/dL POC Glucose (mg/dL) 120 H (75-99) mg/dL Plasma Lactic Acid Casimiro 2.8 H* (0.7-2.0) mmol/L Calcium (8.4-10.2) mg/dL Urine Ketones Trace H (Negative) Urine Blood Trace H (Negative) Ur Leukocyte Esterase Small H (Negative) Urine WBC 9 H (0-5) /hpf Urine Bacteria Rare H (None) /hpf Urine Mucus Rare H (None) /hpf 08/19/18 08/19/18 Range/Units 04:30 04:30 WBC 13.7 H (3.8-10.6) k/uL Neutrophils # 10.7 H (1.3-7.7) k/uL Chloride 114 H (98-107) mmol/L Carbon Dioxide 21 L (22-30) mmol/L BUN 21 H (7-17) mg/dL Glucose 104 H (74-99) mg/dL POC Glucose (mg/dL) (75-99) mg/dL Plasma Lactic Acid Casimiro (0.7-2.0) mmol/L Calcium 7.4 L (8.4-10.2) mg/dL Urine Ketones (Negative) Urine Blood (Negative) Ur Leukocyte Esterase (Negative) Urine WBC (0-5) /hpf Urine Bacteria (None) /hpf Urine Mucus (None) /hpf Microbiology - Last 24 Hours (Table) 08/18/18 23:10 Urine Culture - Preliminary Urine,Catheterized 08/17/18 23:20 Blood Culture - Preliminary Blood No Growth after 24 hours Assessment and Plan Assessment: Atrial fibrillation with rapid ventricular response -Patient is currently 100-115 metoprolol increased from 25-50 twice a day -Will not reutilized Cardizem with depressed ejection fraction -Cardiology recommendations appreciated -She will need anticoagulation prior to discharge however is postop day 1 -Telemetry Acute systolic congestive heart failure, ejection fraction 30-35% -Likely secondary to uncontrolled A. fib, however heart disease has not been ruled out -Beta-blockade, ANIBAL inhibitor -Cardiology recommendations -Lasix IV push daily added Acute cholecystitis with sepsis -Status post cholecystectomy on 08/18 -Maintain Zosyn -Pain control -General surgery recommendations Elevated TSH -TU for is within normal range -Suggest repeat testing in 2-4 weeks with outpatient Resolved: Hypotension Lactic acidosis DVT prophylaxis: Heparin subcutaneous Discussed with: Gen. surgery, patient, nursing Anticipated discharge: 2-[address]: home A total of 35 minutes was spent on the care of this complex patient more than 50 % of the time was spent in counseling and care coordination.
[2018-08-20 06:57] LABS: Basophils # (A) 0.1 k/uL (0-0.2); Basophils % (A) 1 %; Eosinophils # (A) 0.2 k/uL (0-0.7); Eosinophils % (A) 3 %; HCT 36.5 % (34.0-46.0); HGB 11.3 gm/dL (11.4-16.0); Hypochromasia Slight; Lymphocytes # (A) 1.6 k/uL (1.0-4.8); Lymphocytes % (A) 18 %; MCV 93.6 fL (80.0-100.0); Mean Platelet Volume 7.8; Monocytes # (A) 0.7 k/uL (0-1.0); Monocytes % (A) 8 %; Neutrophils # (A) 6.3 k/uL (1.3-7.7); Neutrophils % (A) 70 %; Platelet Count 195 k/uL (150-450); RDW 14.1 % (11.5-15.5)
[2018-08-20 07:09] LABS: Albumin 2.7 g/dL (3.5-5.0); Calcium 7.5 mg/dL (8.4-10.2); Magnesium 2.1 mg/dL (1.6-2.3); Phosphorus 1.7 mg/dL (2.5-4.5); Potassium 3.8 mmol/L (3.5-5.1); Total Bilirubin 0.9 mg/dL (0.2-1.3); Total Protein 5.5 g/dL (6.3-8.2)
[2018-08-20] MEDS: HEPARIN SODIUM,PORCINE 5,000 UNIT/ML 1 ML VIAL SQ SCH (09:13)
[2018-08-20] MEDS: PIPERACILLIN-TAZOBACTAM 3.375 GM in DEXTROSE/WATER 1 50ML.BAG IVPB SCH ×3 (09:13→23:08)
[2018-08-20] MEDS: DIGOXIN 250 MCG/ML 2 ML AMP IVP SCH (09:14)
[2018-08-20] MEDS: PANTOPRAZOLE 40 MG/10 ML VIAL IVP SCH (09:14)
[2018-08-20] MEDS: FUROSEMIDE 10 MG/ML 4 ML VIAL IV SCH (09:15)
[2018-08-20] MEDS: METOPROLOL TARTRATE 50 MG TAB PO SCH (09:15)
[2018-08-20] MEDS: LISINOPRIL 2.5 MG TAB PO SCH (09:15)
[2018-08-20] MEDS: SPIRONOLACTONE 25 MG TAB PO SCH (09:16)
--- NOTE | 2018-08-20 09:37 | XR ---
EXAMINATION TYPE: XR chest 1V DATE OF EXAM: 08/20/2018 HISTORY: shortness of breath. REFERENCE: Previous study dated 08/19/2018. FINDINGS: Heart size is within normal limits. There is bibasilar airspace disease. I suspect small ef fusions. IMPRESSION: 1. BIBASILAR AIRSPACE DISEASE. 2. I SUSPECT SMALL EFFUSIONS.
[2018-08-20] MEDS: METOPROLOL TARTRATE 25 MG TAB PO SCH ×3 (11:13→20:15)
--- NOTE | 2018-08-20 11:15 | P.PN ---
Subjective Progress Note Date: 08/20/18 This is a 68-year-old female patient who presented to the emergency department with shortness of breath cough and fever. Patient was found to have abnormal liver enzymes and right upper quadrant pain suggestive of acute cholecystitis. She underwent laparoscopic cholecystectomy. She has a known history of atrial fibrillation diagnosed in 2016 and hypertension. 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 She is a history of prior CVA and occipital region. Patient remains in atrial fibrillation. Her heart rate is better controlled. She was started on digoxin , lisinopril, Lopressor and Aldactone. She is tolerating this medication well. The patient will require anticoagulation and I spoke with the surgeon and he has cleared her to start on Eliquis today. Objective - Vital Signs Vital signs: Vital Signs Temp 96.8 F L 08/20/18 08:00 Pulse 90 08/20/18 08:00 Resp 18 08/20/18 08:00 BP 106/61 08/20/18 08:00 Pulse Ox 96 08/20/18 08:33 Intake & Output 08/19/18 08/20/18 08/20/18 18:59 06:59 18:59 Intake Total 570 500 Output Total 360 Balance 210 500 Weight 94.1 kg 96 kg Intake: IV 50 Piperacillin-Tazobactam 3 50 .375 gm In Dextrose/Water 1 50ml.bag @ 12.5 mls/hr IVPB Q8HR [facility] Rx#: [id number] Intake, IV Titration 100 100 Amount Piperacillin-Tazobactam 3 100 .375 gm In Dextrose/Water 1 50ml.bag @ 12.5 mls/hr IVPB Q8HR [facility] Rx#: [id number] Sodium Chloride 0.9% 1, 100 000 ml @ 0 mls/hr IV .[facility] Rx#:[id number] Oral 420 400 Output: Urine 360 Other: Voiding Method Indwelling Catheter Toilet Toilet # Voids 1 1 ABP, PAP, CO, CI - Last Documented Arterial Blood Pressure 111/70 - Exam GENERAL EXAM: Patient is alert and oriented and doesn't appear to be in any acute distress HEENT: Normocephalic. Normal reaction of pupils, equal size, normal range of extraocular motion. No erythema or exudates in the throat. NECK: No masses, no nuchal rigidity. CHEST: No chest wall deformity. LUNGS: Equal air entry with no crackles or wheeze. HEART: S1 and S2 normal with no audible mumurs or gallops. Irregular rhythm. ABDOMEN: Soft, expected tenderness to incisional areas, bowel sounds positive. SKIN: No rashes CENTRAL NERVOUS SYSTEM: No focal deficits. EXTREMITIES: No cyanosis, clubbing or edema. Pulses palpable bilaterally. - Labs CBC & Chem 7: 08/20/18 06:41 08/20/18 06:41 Labs: Abnormal Lab Results - Last 24 Hours (Table) 08/20/18 08/20/18 Range/Units 06:41 06:41 Hgb 11.3 L (11.4-16.0) gm/dL Calcium 7.5 L (8.4-10.2) mg/dL Phosphorus 1.7 L (2.5-4.5) mg/dL AST 116 H (14-36) U/L ALT 203 H (9-52) U/L Alkaline Phosphatase 134 H (38-126) U/L Total Protein 5.5 L (6.3-8.2) g/dL Albumin 2.7 L (3.5-5.0) g/dL Microbiology - Last 24 Hours (Table) 08/17/18 23:20 Blood Culture - Preliminary Blood No Growth after 48 hours 08/18/18 23:10 Urine Culture - Preliminary Urine,Catheterized Assessment and Plan Assessment: Acute cholecystitis status post laparoscopic cholecystectomy Atrial fibrillation with a rapid ventricular response, better controlled Hypertension Hypotension Hypothyroidism Plan: Echocardiogram showed normal LV size with decreased systolic function. EF is 30 -35%. Moderate MR, moderate TR, RVSP is 35 mmHg. Patient's medications were adjusted yesterday. Her heart rate is better controlled. I discussed with the patient's surgeon regarding the need to start anticoagulant and he agrees with this treatment plan and stated she could be started on Eliquis today. We will continue to follow her closely.
--- NOTE | 2018-08-20 11:26 | P.PN ---
Subjective Progress Note Date: 08/20/18 Principal diagnosis: Acute sepsis secondary to acute cholecystitis, paroxysmal atrial fibrillation with RVR. History of present illness: Patient presented due to progressive weakness over the past 2 weeks, she thought that she has URI, and all she took was over the counter cough medicine. SHe does not take any of her cardiac medications or the blood thinner. She reports some fever few days ago and symptoms of sore throat and congestion , that has all improved since. However, today she was feeling very weak , could not walk , she also noticed some palpitations, and decided to take some of her old medications. she is not sure what she took (flecainide or metoprolol). However there was no improvement, therefore decided to come to the hospital. denies any fever or abd pain at home, denies any food intolerance, nausea or vomiting, denies any changes in her bowel or urinary habits. denies any focal neurological deficits but felt generalized fatigue and weakness. She otherwise, reports that prior to this event she felt very well, and did not take any medications for very long time. In the ED she was found to be in afib with RVR, and later became hypotensive after starting her on cardizem drip for afib. upon examining her abd in the ED, she had some RUQ pain, Abd US , suggested acute cholecystitis. no biliary dilatation patient was admitted to the ICU due to hypotension , afib RVR, and lactic acidosis . along with elevated liver enzymes suspicious for acute cholangitis. Patient wasn't ready seen by surgery on consultation, however considering the atrial fibrillation and her cardiac condition, patient will definitely need cardiac clearance before any surgery is considered. She is now in the ICU, comfortable, on Cardizem drip, hemodynamically stable, rate seems to be well- controlled symptoms morales, the patient has mostly cough and weakness, again the cough is nonproductive, she has generalized weakness, she had a low-grade temp on admission, no headache no blurred vision no dizziness no nausea no vomiting no abdominal pain no melena no hematemesis no dysuria and no frequency no urgency. Patient was reevaluated today on 08/19/2018., She is now status post laparoscopic cholecystectomy done late in the afternoon yesterday after the patient was cleared by cardiology. Patient was noted to have acute cholecystitis, her perioperative course has been quite uneventful. Patient is doing well at present, hemodynamically stable, in atrial fibrillation but rate controlled. Labs were reviewed, WBC count is 13.7, hemoglobin is 12.3. Electrolytes and basic metabolic profile are relatively normal. Chest x-ray showed minimal left basilar atelectasis and small bilateral effusions. Patient will receive a Lasix dose today. Reevaluated today on 08/20/2018, patient is doing well, relatively asymptomatic, no cough no wheezing no shortness of breath, she is presently on a monitor bed on selective, she has intermittent atrial fibrillation with RVR, being managed by cardiology. Remains on antibiotics, she had a relatively uneventful laparoscopic cholecystectomy. CBC is relatively normal basic metabolic profile and renal profile are normal. Objective - Vital Signs Vital signs: Vital Signs Temp 96.8 F L 08/20/18 08:00 Pulse 90 08/20/18 08:00 Resp 18 08/20/18 08:00 BP 106/61 08/20/18 08:00 Pulse Ox 96 08/20/18 08:33 Intake & Output 08/19/18 08/20/18 08/20/18 18:59 06:59 18:59 Intake Total 570 500 Output Total 360 Balance 210 500 Weight 94.1 kg 96 kg Intake: IV 50 Piperacillin-Tazobactam 3 50 .375 gm In Dextrose/Water 1 50ml.bag @ 12.5 mls/hr IVPB Q8HR [facility] Rx#: [id number] Intake, IV Titration 100 100 Amount Piperacillin-Tazobactam 3 100 .375 gm In Dextrose/Water 1 50ml.bag @ 12.5 mls/hr IVPB Q8HR [facility] Rx#: [id number] Sodium Chloride 0.9% 1, 100 000 ml @ 0 mls/hr IV .[facility] Rx#:[id number] Oral 420 400 Output: Urine 360 Other: Voiding Method Indwelling Catheter Toilet Toilet # Voids 1 1 ABP, PAP, CO, CI - Last Documented Arterial Blood Pressure 111/70 - Exam Physical Exam: 68-year-old female, asymptomatic, in no distress. Head: Normocephalic, atraumatic.. HEENT: PERRLA, EOMI, neck supple no neck masses, mucous membranes are normal. Chest: [Clear bilaterally no rhonchi and no wheezes. Cardiac Exam: Irregular irregular rhythm, no S3 gallop. No murmur.] Abdomen: [Postsurgical, soft, slightly tender, no rebound, no guarding. Positive bowel sounds. Extremities: No edema or cyanosis..] Neurological Exam: [Alert oriented 3, no deficit Psychiatric: Normal mental status examination. Lymphatics: No lymphadenopathy. - Labs CBC & Chem 7: 08/20/18 06:41 08/20/18 06:41 Labs: Abnormal Lab Results - Last 24 Hours (Table) 08/20/18 08/20/18 Range/Units 06:41 06:41 Hgb 11.3 L (11.4-16.0) gm/dL Calcium 7.5 L (8.4-10.2) mg/dL Phosphorus 1.7 L (2.5-4.5) mg/dL AST 116 H (14-36) U/L ALT 203 H (9-52) U/L Alkaline Phosphatase 134 H (38-126) U/L Total Protein 5.5 L (6.3-8.2) g/dL Albumin 2.7 L (3.5-5.0) g/dL Microbiology - Last 24 Hours (Table) 08/17/18 23:20 Blood Culture - Preliminary Blood No Growth after 48 hours 08/18/18 23:10 Urine Culture - Preliminary Urine,Catheterized Assessment and Plan Assessment: Impression: 1 acute sepsis secondary to acute cholecystitis with hypotension which is related to the sepsis and the related to atrial fibrillation with RVR. 2 paroxysmal atrial fibrillation with RVR. Being addressed by cardiology. 3 acute tracheobronchitis. 4 acute lactic acidosis related to acute cholecystitis and sepsis. 5 postoperative day #2, status post laparoscopic cholecystectomy. Recommendation: Continue antibiotics, continue incentive spirometry, continue medications for A. fib/RVR, continue to monitor on selective, we will follow. Time with Patient: Less than 30
--- NOTE | 2018-08-20 11:38 | P.PN ---
Progress Note - Text Progress Note Date: 08/20/18 Patient is resting comfortably bed. She is tolerating a diet. She has minimal quite so dull pain. On exam her vital signs are stable. Her abdomen soft. Incision sites are clean dry intact. Status post laparoscopic placed at the for acute cholecystitis. Patient was discharged home per medicine.
[2018-08-20] MEDS: APIXABAN 5 MG TAB PO SCH ×2 (13:05→20:15)
[2018-08-20] MEDS ORDERED: DOCUSATE 100 MG CAP PO PRN (13:29)
--- NOTE | 2018-08-20 13:31 | P.PN ---
Subjective Progress Note Date: 08/20/18 (delayed charting sen at 0930) Principal diagnosis: Shortness of breath Is a 68-year-old female with a past history of paroxysmal atrial fibrillation, rectal bleeding, and obesity who presented to the ER with complaints of upper respiratory. The ER she underwent an extensive evaluation. She was initially found the nature of the rapid ventricular response and later became hypotensive after starting her Cardizem drip. Upon examination in the ER she had a right upper quadrant pain underwent ultrasound which suggested acute cholecystitis. She was admitted to the ICU. She underwent an echocardiogram which showed an ejection fraction of 30-35%. She was seen by cardiology. She was taken to the OR for laparoscopic cholecystectomy by Dr. Mcallister on 08/18. She was given a dose of oral metoprolol on her Cardizem drip was stopped on the evening of 08/18 after her echocardiogram results were reviewed. She was started on aldactone, lisinopril, and digoxin by cardio. She was transferred to [facility] care on 08/19. Patient seen and examined at bedside. States that she is feeling well. Still having SOB when moving minimally. No chest pain. Feeling fatigued. No BM yet, abdominal pain controlled. Objective - Vital Signs Vital signs: Vital Signs Temp 97.8 F 08/20/18 11:34 Pulse 100 08/20/18 11:34 Resp 18 08/20/18 11:34 BP 112/61 08/20/18 11:34 Pulse Ox 94 L 08/20/18 11:34 Intake & Output 08/19/18 08/20/18 08/20/18 18:59 06:59 18:59 Intake Total 570 500 300 Output Total 360 Balance 210 500 300 Weight 94.1 kg 96 kg Intake: IV 50 Piperacillin-Tazobactam 3 50 .375 gm In Dextrose/Water 1 50ml.bag @ 12.5 mls/hr IVPB Q8HR [facility] Rx#: [id number] Intake, IV Titration 100 100 Amount Piperacillin-Tazobactam 3 100 .375 gm In Dextrose/Water 1 50ml.bag @ 12.5 mls/hr IVPB Q8HR [facility] Rx#: [id number] Sodium Chloride 0.9% 1, 100 000 ml @ 0 mls/hr IV .[facility] Rx#:[id number] Oral 420 400 300 Output: Urine 360 Other: Voiding Method Indwelling Catheter Toilet Toilet # Voids 1 1 ABP, PAP, CO, CI - Last Documented Arterial Blood Pressure 111/70 - Exam General: Ill appearing, no distress, appears at stated age Derm: warm, dry Head: atraumatic, normocephalic, symmetric Eyes: EOMI, no lid lag, anicteric sclera Mouth: no lip lesion, mucus membranes moist Cardiovascular: S1-S2 irregular, no murmur, positive posterior tibial pulse bilateral, Lungs: decreased breath sounds bilateral bases, no rhonchi, no rales , no accessory muscle use Abdominal: soft, tender to palpation right upper quadrant, no guarding, no appreciable organomegaly Ext: no gross muscle atrophy, no edema, no contractures Neuro: CN II-XI grossly intact, no focal neuro deficits Psych: Alert, oriented, appropriate affect - Labs CBC & Chem 7: 08/20/18 06:41 08/20/18 06:41 Labs: Abnormal Lab Results - Last 24 Hours (Table) 08/20/18 08/20/18 Range/Units 06:41 06:41 Hgb 11.3 L (11.4-16.0) gm/dL Calcium 7.5 L (8.4-10.2) mg/dL Phosphorus 1.7 L (2.5-4.5) mg/dL AST 116 H (14-36) U/L ALT 203 H (9-52) U/L Alkaline Phosphatase 134 H (38-126) U/L Total Protein 5.5 L (6.3-8.2) g/dL Albumin 2.7 L (3.5-5.0) g/dL Microbiology - Last 24 Hours (Table) 08/18/18 23:10 Urine Culture - Final Urine,Catheterized 08/17/18 23:20 Blood Culture - Preliminary Blood No Growth after 48 hours Assessment and Plan Assessment: Atrial fibrillation with rapid ventricular response -Metoprolol, digoxin -Cardiology recommendations appreciated -eliquis started today by cardio -Telemetry Constipation - add prn colace Acute systolic congestive heart failure, ejection fraction 30-35% -Likely secondary to uncontrolled A. fib, however coronary artery disease has not been ruled out -Beta-blockade, ANIBAL inhibitor, lasix, aldactone -Cardiology recommendations Acute cholecystitis with sepsis -Status post cholecystectomy on 08/18 -Maintain Zosyn -Pain control -General surgery recommendations Elevated TSH -Tsh for is within normal range -Suggest repeat testing in 2-4 weeks with outpatient Resolved: Hypotension Lactic acidosis DVT prophylaxis: Heparin subcutaneous Discussed with: Gen. surgery, patient, nursing Anticipated discharge: 1-[address]: home A total of 35 minutes was spent on the care of this complex patient more than 50 % of the time was spent in counseling and care coordination.
[2018-08-21 06:27] LABS: Basophils % (A) 0 %; Eosinophils # (A) 0.2 k/uL (0-0.7); Eosinophils % (A) 2 %; HCT 35.9 % (34.0-46.0); HGB 11.5 gm/dL (11.4-16.0); Hypochromasia Slight; Lymphocytes # (A) 1.5 k/uL (1.0-4.8); Lymphocytes % (A) 17 %; MCHC 31.9 g/dL (31.0-37.0); MCV 90.8 fL (80.0-100.0); Monocytes # (A) 0.7 k/uL (0-1.0); Monocytes % (A) 8 %; Neutrophils # (A) 5.9 k/uL (1.3-7.7); Neutrophils % (A) 70 %; Platelet Count 208 k/uL (150-450); RBC 3.95 m/uL (3.80-5.40); WBC 8.4 k/uL (3.8-10.6)
[2018-08-21 06:45] LABS: ALT 158 U/L (9-52); AST 65 U/L (14-36); Alkaline Phosphatase 168 U/L (38-126); Anion Gap 8 mmol/L; Blood Urea Nitrogen 10 mg/dL (7-17); Calcium 8.1 mg/dL (8.4-10.2); Carbon Dioxide 27 mmol/L (22-30); Chloride 103 mmol/L (98-107); Glucose 98 mg/dL (74-99); Potassium 3.4 mmol/L (3.5-5.1); Sodium 138 mmol/L (137-145); Total Protein 5.8 g/dL (6.3-8.2)
[2018-08-21] MEDS ORDERED: PANTOPRAZOLE 40 MG TABLET PO SCH (07:30)
[2018-08-21] MEDS: APIXABAN 5 MG TAB PO SCH (08:55)
[2018-08-21] MEDS: SPIRONOLACTONE 25 MG TAB PO SCH (08:55)
[2018-08-21] MEDS: METOPROLOL TARTRATE 25 MG TAB PO SCH (08:55)
[2018-08-21] MEDS: LISINOPRIL 2.5 MG TAB PO SCH (08:56)
[2018-08-21] MEDS ORDERED: FUROSEMIDE 40 MG TAB PO SCH (09:00)
[2018-08-21 09:55] VITALS: RESP 18
[2018-08-21] MEDS: PIPERACILLIN-TAZOBACTAM 3.375 GM in DEXTROSE/WATER 1 50ML.BAG IVPB SCH (10:06)
[2018-08-21 11:30] VITALS: BP 138/75; PULSE 85; TEMP 97.5
--- NOTE | 2018-08-21 11:44 | P.PN ---
Subjective Progress Note Date: 08/21/18 This is a 68-year-old female patient who presented to the emergency department with shortness of breath cough and fever. Patient was found to have abnormal liver enzymes and right upper quadrant pain suggestive of acute cholecystitis. She underwent laparoscopic cholecystectomy. She has a known history of atrial fibrillation diagnosed in 2016 and hypertension. The patient stopped her medications and was not following with the [employer]osc[employer] faculty member. She is a history of prior CVA and occipital region. Patient remains in atrial fibrillation. Her heart rate is better controlled. Patient is currently on Eliquis 5 mg one tablet by mouth twice a day which was approved by the surgeon, Lasix 40 mg daily, fosinopril 200 mg daily, metoprolol 25 mg by mouth 3 times a day, and Aldactone 12-1/2 mg daily. She feels well overall, no complaints, is quite eager to be discharged home. Objective - Vital Signs Vital signs: Vital Signs Temp 97.5 F L 08/21/18 11:19 Pulse 85 08/21/18 11:19 Resp 18 08/21/18 11:19 BP 138/75 08/21/18 11:19 Pulse Ox 93 L 08/21/18 11:19 Intake & Output 08/20/18 08/21/18 08/21/18 18:59 06:59 18:59 Intake Total 1190 300 400 Balance 1190 300 400 Weight 88.5 kg Intake: IV 50 Piperacillin-Tazobactam 3 50 .375 gm In Dextrose/Water 1 50ml.bag @ 12.5 mls/hr IVPB Q8HR [facility] Rx#: [id number] Intake, IV Titration 160 50 Amount Piperacillin-Tazobactam 3 50 .375 gm In Dextrose/Water 1 50ml.bag @ 12.5 mls/hr IVPB Q8HR [facility] Rx#: [id number] Sodium Chloride 0.9% 1, 160 000 ml @ 0 mls/hr IV .[facility] Rx#:[id number] Oral 980 250 400 Other: Voiding Method Toilet Toilet # Voids 1 # Bowel Movements 1 ABP, PAP, CO, CI - Last Documented Arterial Blood Pressure 111/70 - Exam PHYSICAL EXAMINATION: GENERAL: 68-year-old female in no acute distress at the time of my examination HEENT: Head is atraumatic, normocephalic. Pupils equal, round. Sclera anicteric. Conjunctiva are clear. Mucous membranes of the mouth are moist. Neck is supple. There is no elevated jugular venous pressure. No carotid bruit is heard. HEART EXAMINATION: Heart S1, S2 irregularly irregular . No murmur or gallop heard. CHEST EXAMINATION: Lungs are clear to auscultation and precussion. No chest wall tenderness is noted on palpation or with deep breathing. ABDOMEN: Soft, mild tenderness. Bowel sounds are heard. No organomegaly noted. EXTREMITIES: 2+ peripheral pulses with no evidence of peripheral edema and no calf tenderness noted. NEUROLOGIC patient is awake, alert and oriented X3. . - Labs CBC & Chem 7: 08/21/18 06:05 08/21/18 06:05 Labs: Abnormal Lab Results - Last 24 Hours (Table) 08/21/18 Range/Units 06:05 Potassium 3.4 L (3.5-5.1) mmol/L Calcium 8.1 L (8.4-10.2) mg/dL Phosphorus 2.0 L (2.5-4.5) mg/dL AST 65 H (14-36) U/L ALT 158 H (9-52) U/L Alkaline Phosphatase 168 H (38-126) U/L Total Protein 5.8 L (6.3-8.2) g/dL Albumin 3.0 L (3.5-5.0) g/dL Microbiology - Last 24 Hours (Table) 08/17/18 23:20 Blood Culture - Preliminary Blood No Growth after 72 hours 08/18/18 23:10 Urine Culture - Final Urine,Catheterized Assessment and Plan Plan: Assessment and plan #1 acute cholecystitis status post laparoscopic cholecystectomy #2 chronic persistent atrial fibrillation, rate currently under adequate control #3 prior history of A. fib #4 history of CVA #5 hypertension #6 hyperlipidemia Plan From cardiology's perspective, we'll recommend to continue the patient on her current medications. She may be able to be discharged or transferred to [facility] from our perspective. We will recommend follow-up appointment in the office post discharge. DNP note has been reviewed, I agree with a documented findings and plan of care. Patient was seen and examined.
[2018-08-21] MEDS: DIGOXIN 250 MCG/ML 2 ML AMP IVP SCH (12:24)
--- NOTE | 2018-08-21 13:10 | P.PN ---
Subjective Progress Note Date: 08/21/18 68-year-old female seen at the bedside states pain medication effective for pain control using plain Tylenol. Has been up ambulating in the hallway. Surgical dressing site dry. Patients being followed by cardiology service. Monitor shows atrial fibrillation rate controlled currently on elquis 5 mg twice a day. Patient states she's been up ambulatory on the unit is anxious to be discharged tolerating a diet with no difficulty surgical dressing site dry abdomen soft nondistended Postop 18 August laparoscopic cholecystectomy for acute cholecystitis Objective - Vital Signs Vital signs: Vital Signs Temp 97.5 F L 08/21/18 11:19 Pulse 85 08/21/18 11:19 Resp 18 08/21/18 11:19 BP 138/75 08/21/18 11:19 Pulse Ox 93 L 08/21/18 11:19 Intake & Output 08/20/18 08/21/18 08/21/18 18:59 06:59 18:59 Intake Total 1190 300 400 Balance 1190 300 400 Weight 88.5 kg Intake: IV 50 Piperacillin-Tazobactam 3 50 .375 gm In Dextrose/Water 1 50ml.bag @ 12.5 mls/hr IVPB Q8HR [facility] Rx#: [id number] Intake, IV Titration 160 50 Amount Piperacillin-Tazobactam 3 50 .375 gm In Dextrose/Water 1 50ml.bag @ 12.5 mls/hr IVPB Q8HR [facility] Rx#: [id number] Sodium Chloride 0.9% 1, 160 000 ml @ 0 mls/hr IV .[facility] Rx#:[id number] Oral 980 250 400 Other: Voiding Method Toilet Toilet # Voids 1 # Bowel Movements 1 ABP, PAP, CO, CI - Last Documented Arterial Blood Pressure 111/70 - Exam Physical exam 68-year-old female sitting up on the edge of the bed states anxious to be discharged Lungs adequate air movement on room air Heart S1-S2 audible irregular Abdomen surgical dressing sites dry soft surgical tenderness appropriate no nausea no vomiting tolerating diet nondistended Extremities no edema - Labs CBC & Chem 7: 08/21/18 06:05 08/21/18 06:05 Labs: Abnormal Lab Results - Last 24 Hours (Table) 08/21/18 Range/Units 06:05 Potassium 3.4 L (3.5-5.1) mmol/L Calcium 8.1 L (8.4-10.2) mg/dL Phosphorus 2.0 L (2.5-4.5) mg/dL AST 65 H (14-36) U/L ALT 158 H (9-52) U/L Alkaline Phosphatase 168 H (38-126) U/L Total Protein 5.8 L (6.3-8.2) g/dL Albumin 3.0 L (3.5-5.0) g/dL Microbiology - Last 24 Hours (Table) 08/17/18 23:20 Blood Culture - Preliminary Blood No Growth after 72 hours 08/18/18 23:10 Urine Culture - Final Urine,Catheterized Assessment and Plan Assessment: Impression Present on admission right upper quadrant pain suspect due to acute cholecystitis Postop laparoscopic cholecystectomy done on August 18 A prior history of CVA Chronic persistent atrial fibrillation with episodes of rapid ventricular response Constipation Acute systolic congestive heart failure injection fraction 30-35% Plan Okay to proceed with a discharge from surgical perspective Continue postop surgical care DVT and GI prophylaxis Pain control Follow-up in the outpatient setting a follow-up visit The above impression and plan of care have been discussed and directed by signing physician. Maritza Diaz nurse practitioner acting as scribe for signing physician.
--- NOTE | 2018-08-21 13:32 | P.PN ---
Subjective Progress Note Date: 08/21/18 Principal diagnosis: Gangrenous cholecystitis Progress note dated 08/21/2018 68-year-old female who presented with acute cholecystitis with hypotension and sepsis. She also developed atrial fibrillation with RVR. That was addressed by the ceo [place]. Today she's doing much better. She is resting comfortably on the sixth floor. She has a history of acute tracheobronchitis lactic acidosis and the recent laparoscopic cholecystectomy, postop day #3. She denies any pain. No difficulty breathing. No coughing wheezing phlegm production. No fever or chills. Her abdomen seems be relatively soft and only having minimal pain. Objective - Vital Signs Vital signs: Vital Signs Temp 97.5 F L 08/21/18 11:19 Pulse 85 08/21/18 11:19 Resp 18 08/21/18 11:19 BP 138/75 08/21/18 11:19 Pulse Ox 93 L 08/21/18 11:19 Intake & Output 08/20/18 08/21/18 08/21/18 18:59 06:59 18:59 Intake Total 1190 300 400 Balance 1190 300 400 Weight 88.5 kg Intake: IV 50 Piperacillin-Tazobactam 3 50 .375 gm In Dextrose/Water 1 50ml.bag @ 12.5 mls/hr IVPB Q8HR [facility] Rx#: [id number] Intake, IV Titration 160 50 Amount Piperacillin-Tazobactam 3 50 .375 gm In Dextrose/Water 1 50ml.bag @ 12.5 mls/hr IVPB Q8HR [facility] Rx#: [id number] Sodium Chloride 0.9% 1, 160 000 ml @ 0 mls/hr IV [facility] Rx#:[id number] Oral 980 250 400 Other: Voiding Method Toilet Toilet # Voids 1 # Bowel Movements 1 ABP, PAP, CO, CI - Last Documented Arterial Blood Pressure 111/70 - Exam No acute distress, oriented 3. HEENT examination is grossly unremarkable. Mucous membranes are moist. No oral lesions. Neck supple. Full range of motion. No adenopathy thyromegaly or neck vein distention. Cardiovascular examination reveals regular rhythm rate. S1-S2 normal. No S3 or S4. No discernible murmur noted. Lungs reveal clear breath sounds. Her sounds are equal bilaterally. No adventitious lung sounds including wheezes rhonchi or crackles. Abdomen soft bowel sounds are heard. Mild tenderness on palpation. No surgical belly. Bowel sounds are heard. No masses. Extremities are intact. No cyanosis clubbing or edema. Skin is without rash or lesion. Neurologic examination is brief but nonfocal. - Labs CBC & Chem 7: 08/21/18 06:05 08/21/18 06:05 Labs: Abnormal Lab Results - Last 24 Hours (Table) 08/21/18 Range/Units 06:05 Potassium 3.4 L (3.5-5.1) mmol/L Calcium 8.1 L (8.4-10.2) mg/dL Phosphorus 2.0 L (2.5-4.5) mg/dL AST 65 H (14-36) U/L ALT 158 H (9-52) U/L Alkaline Phosphatase 168 H (38-126) U/L Total Protein 5.8 L (6.3-8.2) g/dL Albumin 3.0 L (3.5-5.0) g/dL Microbiology - Last 24 Hours (Table) 08/17/18 23:20 Blood Culture - Preliminary Blood No Growth after 72 hours 08/18/18 23:10 Urine Culture - Final Urine,Catheterized Assessment and Plan Assessment: Assessment Postop day #3, status post laparoscopic cholecystectomy Sepsis, secondary to acute cholecystitis with hypotension. Acute paroxysmal atrial fibrillation with rapid ventricular response Lactic acidosis secondary to sepsis Acute tracheobronchitis History of rectal bleeding Possible history of TIA/CVA Plan: Plan dated 08/21/2018 The patient looks like she is being readied for discharge possibly. The patient 's having minimal abdominal pain. No respiratory issues. Specifically, she denies any shortness of breath chest tightness wheezing cough or phlegm production. Microbiology is negative. White count 8.4, hemoglobin 11.5, hematocrit 35.9 and platelet count normal. Sodium 138 potassium 3.4 chloride 103 CO2 27 the only current were 10 and 0.74. Liver function test are coming down very nicely. Time with Patient: Less than 30
--- NOTE | 2018-08-22 23:35 | DS ---
DISCHARGE SUMMARY DATE OF ADMISSION: August 18, 2018. DATE OF DISCHARGE: August 21, 2018. FINAL DIAGNOSES: 1. Acute cholecystitis. 2. Persistent atrial fibrillation with rapid ventricular rate. 3. Dilated cardiomyopathy ejection fraction 35-40 percent. 4. Obesity; BMI 33.5. 5. Moderate mitral and tricuspid regurgitation, nonrheumatic. HOSPITAL COURSE: This patient presented with acute cholecystitis, underwent a laparoscopic cholecystectomy, doing much better, tolerating a diet. Had a bowel movement, up and about. The patient heart rate is controlled. Put on anticoagulation. The patient was seen by surgery, cleared by surgery, cardiology and Dr. Callejas. I discussed the echo results with the patient and her . Questions were answered. On examination, abdomen soft, nontender. Cardiovascular: Heart sounds regular. Lungs are clear. The patient is afebrile. Blood pressure 130/75, hemoglobin 11.5. BUN creatinine is normal. Per Dr. Mcallister, no need for antibiotics. DISCHARGE MEDICATIONS: 1. Eliquis 5 mg p.o. b.i.d. 2. Zestril 2.5 mg p.o. daily. 3. Lopressor 25 mg p.o. t.i.d. 4. Aldactone 12.5 mg p.o. daily. FOLLOW UP: With Dr. Barker on 09/07/2018, Dr. Mejias on 08/25/2028, Dr. Duncan Little on September 14, 2018, Dr. Mcallister on 08/29/2018. Surgical orders by Dr. Mcallister including no tub bath for 6 weeks. Discussion and discharge planning more than [address] Mejias. MMHERMINIAL / IJN: [id number] /
--- NOTE | 2018-08-25 14:16 | CDI ---
Last Revision, October 2017 Documentation Clarification Form Date: 08/25/18 From: Irene Dave Elaina Han, Gin Clerk Hours-8:30 am & 5 pm Ling Admit Date: 08/18/2018 12:45:00 AM Patient Name: Janeen Hernández Visit Number: [id number] Discharge Date: 08/21/18 ATTENTION: The Clinical Documentation Specialists (CDI) and [facility] Coding Staff appreciate your assistance in clarifying documentation. Please respond to the clarification below the line at the bottom and electronically sign. The CDI & [facility] Coding staff will review the response and follow-up if needed. Please note: Queries are made part of the Legal Health Record. If you have any questions, please contact the author of this message via ITS. Tripp Gongora MD Conflicting documentation has been found in the medical record. Per your DS sepsis is not mentioned. Sepsis is documented in the ED note, Dr Barker consult and PNs, Dr Borjas PNs, and Dr Callejas's PN. History/Risk Factors: Clinical Indicators: lactic acid 2.4, bilirubin 1.4, pulse 107, R-26, bp-96/71 Treatment: fluid bolus, IV Unasyn, lap tristan In your opinion what is the most clinically appropriate diagnosis for this patient? Sepsis Sepsis ruled out Other explanation of clinical findings Unable to determine (no explanation for clinical findings) Please continue to document in your progress notes and discharge summary in order to capture severity of illness and risk of mortality. Include clinical findings that support your diagnosis. sepsis from acute cholecystits, POA MTDD
== END 2018-08-21 15:15 | disposition home or self-care (01) | DRG 853 ==
LOC: EC 23:09 → 6SEL 08-18 00:45 → 6ICU 08-18 03:05 → 6SEL 08-19 11:36
PROVIDERS: ADMIT Hospitalist; ATTEND Hospitalist
PROC: 0FT44ZZ Resection of Gallbladder, Percutaneous Endoscopic Approach (ICD-10-PCS; principal; 2018-08-18 11:30)
DX: A41.9 Sepsis, unspecified organism (principal); I50.21 Acute systolic (congestive) heart failure; K81.0 Acute cholecystitis; K83.0 Cholangitis; E87.2 Acidosis; I42.0 Dilated cardiomyopathy; I95.9 Hypotension, unspecified; I48.2 Chronic atrial fibrillation; I11.0 Hypertensive heart disease with heart failure; I36.1 Nonrheumatic tricuspid (valve) insufficiency; I69.398 Other sequelae of cerebral infarction; I34.0 Nonrheumatic mitral (valve) insufficiency; J20.9 Acute bronchitis, unspecified; H53.9 Unspecified visual disturbance; R40.2362 Coma scale, best motor response, obeys commands, at arrival to emergency department; R40.2142 Coma scale, eyes open, spontaneous, at arrival to emergency department; R40.2252 Coma scale, best verbal response, oriented, at arrival to emergency department; E03.9 Hypothyroidism, unspecified; I25.10 Atherosclerotic heart disease of native coronary artery without angina pectoris; E78.5 Hyperlipidemia, unspecified; K59.00 Constipation, unspecified; E66.9 Obesity, unspecified; Z68.33 Body mass index [BMI] 33.0-33.9, adult; Z79.899 Other long term (current) drug therapy; Z82.5 Family history of asthma and other chronic lower respiratory diseases; Z80.3 Family history of malignant neoplasm of breast; Z82.49 Family history of ischemic heart disease and other diseases of the circulatory system; Z80.1 Family history of malignant neoplasm of trachea, bronchus and lung; Z83.6 Family history of other diseases of the respiratory system
CPT/HCPCS: 36415; 71045; 71046; 76705; 80048; 80053; 81001; 82550; 82553; 83036; 83605; 83690; 83735; 83880; 84100; 84439; 84443; 84484; 85025; 85610; 85730; 87040; 87086; 88304; 93005; 93306; 94002; 94760; 96365; 96366; 96375; 96376; 99291

== ENCOUNTER → 2018-10-02 | Day surgery (SDC) | payer MEDICARE ==
[~2018-10-02] MED LIST: AMIODARONE 100 MG TAB PO SCH; BENZOCAINE SPRAY 1 CAN MUCOUS MEM ONE; LACTATED RINGERS 1,000 ML IV SCH; LISINOPRIL 5 MG TAB PO SCH; PROPOFOL 10 MG/ML 20 ML VIAL IV ONE; SODIUM CHLORIDE 0.9% 1,000 ML IV SCH; fentaNYL (PF) 50 MCG/ML 2 ML AMP IVP ONE; fentaNYL (PF) 50 MCG/ML 2 ML AMP ONE
[2018-10-02 09:18] VITALS: TEMP 98.3
[2018-10-02 10:03] LABS: Calcium 9.6 mg/dL (8.4-10.2); Potassium 4.8 mmol/L (3.5-5.1)
[2018-10-02 10:22] VITALS: RESP 16
--- NOTE | 2018-10-02 10:42 | ECHOT ---
TRANSESOPHAGEAL ECHOCARDIOGRAM PROCEDURE: Transesophageal echocardiogram. Mrs. Hernández is a 68-year-old female who was recently detected to have atrial fibrillation. Patient was treated with medications to control the rate and was advised cardioversion. Transesophageal echocardiogram was performed to rule out any evidence of clot. The patient was given intravenous sedation by the nurse employment assistant and transesophageal echocardiogram was performed without any complications. Left ventricular chamber is normal in size with [id number] degree of global hypokinesia is noted with estimated ejection fraction in the range of 40%. There is a mild mitral and tricuspid regurgitation noted. Interatrial septum is intact. There is evidence of moderate size clot in the left atrial appendage. There is evidence of diffuse atherosclerotic plaque noted in the descending thoracic aorta. FINAL IMPRESSION: 1. There is evidence of moderate size clot in the left atrial appendage. 2. Left ventricular function is moderately impaired with ejection fraction in the range of 40%. 3. There is a diffuse arthrosclerotic plaque noted in the descending thoracic aorta. 4. There is a mild degree of mitral and tricuspid regurgitation. MMODL / IJN: [id number] /
[2018-10-02 13:07] VITALS: BP 132/91; PULSE 82
== END ==
LOC: CATHCVL 08:49
PROVIDERS: ATTEND Internal Medicine Cardiovascular Disease
DX: I70.0 Atherosclerosis of aorta (principal); I08.1 Rheumatic disorders of both mitral and tricuspid valves; I48.91 Unspecified atrial fibrillation; I10 Essential (primary) hypertension; Z79.01 Long term (current) use of anticoagulants; Z79.899 Other long term (current) drug therapy
CPT/HCPCS: 93312; 80048; J3010; J2704; Q9950; 92960

== ENCOUNTER → 2020-09-24 | Outpatient (CLI) | payer MEDICARE ==
[2020-09-24 11:42] LABS: Basophils # (A) 0.1 k/uL (0-0.2); Basophils % (A) 1 %; Eosinophils # (A) 0.2 k/uL (0-0.7); Eosinophils % (A) 3 %; HCT 48.5 % (34.0-46.0); HGB 15.2 gm/dL (11.4-16.0); Lymphocytes # (A) 1.8 k/uL (1.0-4.8); Lymphocytes % (A) 25 %; MCH 30.1 pg (25.0-35.0); MCHC 31.4 g/dL (31.0-37.0); Mean Platelet Volume 8.2; Monocytes # (A) 0.5 k/uL (0-1.0); Monocytes % (A) 7 %; Neutrophils # (A) 4.5 k/uL (1.3-7.7); Neutrophils % (A) 62 %; Platelet Count 230 k/uL (150-450); RBC 5.06 m/uL (3.80-5.40); RDW 14.6 % (11.5-15.5); WBC 7.2 k/uL (3.8-10.6)
[2020-09-24 21:06] LABS: Hemoglobin A1C 5.5 % (4.0-6.0)
[2020-09-24 21:43] LABS: African American GFR (CKD) 58.5 (60.0-200.0); Albumin 4.5 g/dL (3.80-4.90); Albumin/Globulin Ratio 1.61 (1.60-3.17); Anion Gap 9.8 mmol/L (4.00-12.00); BUN/Creat Ratio 11.82 Ratio (12.00-20.00); Calcium 9.3 mg/dL (8.7-10.3); Carbon Dioxide 25.2 mmol/L (21.6-31.8); Globulin 2.8 g/dL (1.6-3.3); Non-African American GFR(CKD) 50.5 (60.0-200.0); Potassium 4.7 mmol/L (3.5-5.5); Total Bilirubin 0.4 mg/dL (0.3-1.2); Total Protein 7.3 g/dL (6.2-8.2)
[2020-09-24 21:51] LABS: T4, Free (Free Thyroxine) 1.1 ng/dL (0.80-1.80)
[2020-09-25 02:14] LABS: Chol/HDL Ratio 3.15; LDL Cholesterol,Calculated 116.6 mg/dL (0.0-131.0); VLDL Calculation 23.4 mg/dL (5.00-40.00)
== END | disposition home or self-care (01) ==
LOC: LABWHC1 10:25
PROVIDERS: ATTEND Internal Medicine Cardiovascular Disease
DX: I10 Essential (primary) hypertension (principal); I48.91 Unspecified atrial fibrillation; Z79.899 Other long term (current) drug therapy
CPT/HCPCS: 36415; 80053; 80061; 82306; 83036; 84439; 84443; 85025

== ENCOUNTER → 2020-11-07 | Outpatient (CLI) | payer MEDICARE ==
--- NOTE | 2020-11-09 14:26 | US ---
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 Rossy GLAND SIZE: Right Lobe: 5.2 x 2.0 x 2.1 cm Overall Parenchyma: heterogenous Left Lobe: 5.0 x 2.0 x 1.6 cm Overall Parenchyma: heterogeneous Isthmus Thickness: .3 cm NODULES RIGHT: # of nodules measured on right: 0 LEFT: # of nodules measured on left: 0 ISTHMUS: # of nodules measured in the isthmus:0 Bilateral neck scanned, no evidence of lymphadenopathy. IMPRESSION: 1. Normal thyroid ultrasound. Thyroid lobes are upper limits for size.
== END | disposition home or self-care (01) ==
LOC: RADUSWWP 16:19
PROVIDERS: ATTEND Family Medicine
DX: E06.3 Autoimmune thyroiditis (principal)
CPT/HCPCS: 76536

== ENCOUNTER → 2021-09-17 | Outpatient (CLI) | payer MEDICARE ==
--- NOTE | 2021-09-21 10:47 | MM ---
Reason for exam: screening (asymptomatic). Last mammogram was performed 8 years and 6 months ago. History: Patient is postmenopausal. Family history of breast cancer in sister at age 42 and breast cancer in mother at age 79. Physical Findings: A clinical breast exam by your physician is recommended on an annual basis and results should be correlated with mammographic findings. MG Screening Mammo w CAD Bilateral CC and MLO view(s) were taken. XCCL view(s) were taken of the left breast. Prior study comparison: March 14, 2013, bilateral digital screening mammo w/CAD. There are scattered fibroglandular densities. A few benign oil cyst calcifications. No significant changes when compared with prior studies. ASSESSMENT: Negative, BI-RAD 1 RECOMMENDATION: Routine screening mammogram of both breasts in 1 year.
== END | disposition home or self-care (01) ==
LOC: RADMAMWWP 13:33
PROVIDERS: ATTEND Family Medicine
DX: Z12.31 Encounter for screening mammogram for malignant neoplasm of breast (principal); Z80.3 Family history of malignant neoplasm of breast
CPT/HCPCS: 77067

== ENCOUNTER → 2022-12-14 | Outpatient (CLI) | payer MEDICARE ==
--- NOTE | 2022-12-15 21:42 | MM ---
Reason for Exam: Screening (asymptomatic). Last mammogram was performed 1 year(s) and 3 month(s) ago. Patient History: Menarche at age 9. First Full-Term at age 25. Postmenopausal. Sister had breast cancer, age 42. Mother had breast cancer, age 79. Risk Values: Roxy 5 year model risk: 6.7%. NCI Lifetime model risk: 15.6%. Prior Study Comparison: 11/25/2009 Screening Mammogram, [facility]. 03/14/2013 Bilateral Screening Mammogram, [facility]. 09/17/2021 Bilateral Screening Mammogram, [facility]. Tissue Density: There are scattered fibroglandular densities. Findings: Analyzed By CAD. A few scattered benign oil cyst calcifications. Faint benign vascular calcifications on the right. No significant mass, suspicious microcalcification, or other discrete abnormality is seen. Overall Assessment: Benign, BI-RAD 2 Management: Screening Mammogram of both breasts in 1 year. 1. Per NCCN guidelines, a 5 year risk greater than 1.67% is used to assess eligibility for risk reduction therapy. Consider specialist referral for further assessment. 2. Patient should continue monthly self breast exams. 3. This exam should not preclude additional follow-up of suspicious palpable abnormalities. Electronically signed and approved by: Emily Delaney M.D. Radiologist
== END | disposition home or self-care (01) ==
LOC: RADMAMWWP 13:09
PROVIDERS: ATTEND Family Medicine
DX: Z12.31 Encounter for screening mammogram for malignant neoplasm of breast (principal); Z78.0 Asymptomatic menopausal state; Z80.3 Family history of malignant neoplasm of breast
CPT/HCPCS: 77067

== ENCOUNTER 2023-05-19 12:40 | Day surgery (SDC) | payer MEDICARE ==
[2023-05-16 13:33] VITALS: BMI 31.7
[2023-05-19] MEDS ORDERED: SODIUM CHLORIDE 0.9% 1,000 ML IV ONE (13:06)
[2023-05-19] MEDS ORDERED: HEPARIN SODIUM,PORCINE 10,000 UNIT/ML 1 ML VIAL ONE (15:56)
[2023-05-19] MEDS ORDERED: LIDOCAINE 2% INJ 20 MG/ML (2 ML VIAL) ONE (15:56)
[2023-05-19] MEDS ORDERED: fentaNYL (PF) 50 MCG/ML 2 ML AMP ONE (15:56)
[2023-05-19] MEDS ORDERED: PROPOFOL 10 MG/ML 20 ML VIAL IV ONE (15:56)
[2023-05-19] MEDS ORDERED: PHENYLEPHRINE-0.9% NACL SYG 1,000 MCG/10 ML SYRINGE ONE (15:56)
[2023-05-19] MEDS ORDERED: MIDAZOLAM 2 MG/2 ML VIAL ONE (15:56)
[2023-05-19] MEDS ORDERED: SUCCINYLCHOLINE CHLORIDE 200 MG/10 ML VIAL IV ONE (15:56)
[2023-05-19] MEDS ORDERED: LIDOCAINE 1% INJ 10MG/ML (20 ML MDV) ONE (16:06)
--- NOTE | 2023-05-19 16:25 | P.HPCAR ---
History of Present Illness This is Dr. Vargas dictating an H/P on this patient The patient was interviewed and examined IMPRESSION / ASSESSMENT: Persistent symptomatic atrial fibrillation with RVR associated with cardio myopathy Failed amiodarone Failed treatment for A. fib History of CVA, embolic with visual field defect PLAN: A. fib ablation with PVI and linear ablation Continue anticoagulation HPI Patient remains in A. fib with RVR despite medical treatment She denies any recent syncope Orthopnea PND no chest discomfort She has not had any fever chills cough expectoration ROS: No fever chills or rigors, no cough, phlegm or expectoration, no nausea, vomiting or diarrhea, no hematuria, dysuria, no musculoskeletal complaints, no strokes or seizures, no skin lesions. EXAMINATION: 148/94 mmHg ulcers 134 beats a minute afebrile Breath sounds are reduced bilaterally but there are no rhonchi no crackles Heart sounds are tachycardic no murmurs No lower extremity edema No JVD REVIEW OF LABS, ECG & MEDICAL DATA currently on metoprolol as well as ELIQUIS Physical Exam Vitals: Vital Signs Temp Pulse Resp BP Pulse Ox 05/19/23 13:05 98.2 F 134 H 18 148/94 96 Intake and Output 05/19/23 05/19/23 05/19/23 06:59 14:59 22:59 Intake Total 100 Balance 100 Intake: IV 100 Other: Weight 79.8 kg 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 blood clot, hx. of pnemonia. See Dr. Vargas's H&P. History of Any Multi-Drug Resistant Organisms: None Reported Past Surgical History: Cholecystectomy, Tonsillectomy Additional Past Surgical History / Comment(s): Colonoscopy Past Anesthesia/Blood Transfusion Reactions: No Reported Reaction Smoking Status: Never smoker - Past Family History Father Family Medical History: Pneumonia Additional Family Medical History / Comment(s): WHEN PT WAS 7 Mother Family Medical History: Cancer Additional Family Medical History / Comment(s): BREAST CANCER AT AGE 79 THEN AT AGE 93 DEVELOPED CHF, LIVED TILL AGE 97 Sister(s) Family Medical History: Cancer Additional Family Medical History / Comment(s): BREAST CANCER AGE 42- BUT FROM LUNG CANCER(ASBESTOES EXPOSURE) Physical Examination Vital Signs Temp Pulse Resp BP Pulse Ox 05/19/23 13:05 98.2 F 134 H 18 148/94 96 Intake and Output 05/19/23 05/19/23 05/19/23 06:59 14:59 22:59 Intake Total 100 Balance 100 Intake: IV 100 Other: Weight 79.8 kg Results Current Medications Generic Name Dose Route Start Last Admin Trade Name Freq PRN Reason Stop Dose Admin Lactated Ringer's 1,000 mls @ 20 mls/hr 05/19/23 06:31 Lactated Ringers IV 06/18/23 06:32 .Q24H STEVEN Magnesium Sulfate/Dextrose 1 100 mls @ 100 mls/hr 05/19/23 16:30 gm/ IV Solution IVPB 05/19/23 17:29 ONCE ONE Intake and Output 05/19/23 05/19/23 05/19/23 06:59 14:59 22:59 Intake Total 100 Balance 100 Intake: IV 100 Other: Weight 79.8 kg Patient Weight 05/20/23 06:59 Weight 79.8 kg
[2023-05-19] MEDS ORDERED: LIDOCAINE 1% INJ 10MG/ML (30 ML VIAL-PF) SQ ONE (16:27)
[2023-05-19] MEDS ORDERED: MAGNESIUM SULFATE-D5W PMX 1 GM in DEXTROSE/WATER 1 100ML.BAG IVPB ONE ×2 (16:30→18:44)
[2023-05-19] MEDS ORDERED: HEPARIN SOD,PORK IN 0.45% NACL 25,000 UNIT in 0.45% NACL 1 250ML.BAG IV ONE (16:40)
[2023-05-19] MEDS ORDERED: IBUTILIDE 1 MG in SODIUM CHLORIDE 0.9% 50 ML IVPB ONE (16:45)
[2023-05-19] MEDS ORDERED: IOPAMIDOL-370 100ML BTL INJ ONE (18:36)
[2023-05-19] MEDS ORDERED: ACETAMINOPHEN TAB 325 MG TAB PO PRN (18:57)
--- NOTE | 2023-05-19 19:09 | P.EPPROC ---
- EP Procedure Note Electrophysiology Procedure Note: PROCEDURE A. fib ablation/PVI/left atrial roof ablation/LA posterior wall ablation DIAGNOSIS Persistent Atrial fibrillation, symptomatic, refractory to therapy RESULT No left atrial appendage mass seen on intracardiac echo Thickened pericardium, chronic exudative pericarditis, reduced LV systolic function Successful A. fib ablation/pulmonary vein isolation of all veins using cryo- ablation Complete entrance block in all 4 veins confirmed No evidence for phrenic nerve injury Esophageal deflection YES Ablation of the left atrial roof Ablation of the lower posterior wall of the LA outside the inferior veins Infusion of ibutilide through the procedure along with IV magnesium followed by Successful Electrical cardioversion with a synchronized shock across the chest YES PROCEDURE DETAILS Written informed consent prior to procedure. Patient brought to the EP lab. General anesthesia given. Heparin administered. A city maintained above 300 seconds Both groins prepped and draped per protocol and venous sheaths placed. Esophagus intubated, circa catheter for temperature monitoring an endoscope for possible esophageal deflection. Phrenic nerve monitoring performed. Esophageal temperature monitoring performed. Esophageal deflection performed if circa catheter overlapping with the balloon or circa temperature less than 27.5C Intracardiac echocardiography performed. Pericardium evaluated. Left atrial appendage evaluated. Left atrium evaluated along with pulmonary veins Transseptal catheterization performed under fluoroscopic guidance and intracardiac echo guidance Cryoablation sheath exchanged, balloon catheter along with achieve catheter placed in the left atrium. Pulmonary veins isolated in the following sequence: Left superior pulmonary vein followed by left inferior pulmonary vein, followed by right inferior pulmonary vein and lastly right superior pulmonary vein. Phrenic nerve stimulation along with capture thresholds within the SVC and right superior pulmonary vein to identify the phrenic nerve proximity to the cryo- balloon. Pulmonary veins isolated and confirmed with entrance and exit block. Phrenic nerve integrity confirmed at the end of the procedure Ablation of the left atrial roof performed with sequential lesions from the left superior to the right superior pulmonary veins. Ablation of the electrograms confirmed Ablation of the left atrial posterior wall performed with cannulation of the left inferior, followed by the right inferior pulmonary vein atrium. Posterior was successfully ablated. Ablation of electrograms confirmed Intravenous ibutilide 1 mg administered Electrical cardioversion performed for persistence of atrial fibrillation despite successful ablation. Diagnostic catheters for the high right atrium, His bundle, coronary sinus placed. LA and RA pressures recorded RA pressure: 21/9/16 LA pressure: 18/8/14 Diagnostic EP study with coronary sinus pacing and recording Baseline measurements: Sinus cycle length 937 ms, SC interval 178, QRS 65 and QT greater than 500 ms post-cardioversion after infusion of ibutilide AH 61 in HV 56 ms Venous sheaths were removed and hemostasis assured with a closure device. Patient extubated and transferred to recovery Increase procedural time Complex anatomy of the right-sided veins especially right superior vein Multiple attempts needed for successful cryoablation isolation of the right superior pulmonary vein, unusual takeoff large RSPV Mapping of the phrenic nerve within sites. Pulmonary vein, positive map No phrenic nerve paresis PROCEDURES PERFORMED Diagnostic EP study CS pacing and recording Left and right transseptal catheterization Catheter the mapping of the tachycardia Intracardiac echocardiography Pulmonary vein isolation with transseptal and comprehensive EPS, 35853 Extended procedure duration Drug infusion, +96122 Left atrial roof line, +20315 Linear ablation, left atrium lower posterior wall, +91136 Electrical cardioversion with a synchronized shock across the chest [id number]
--- NOTE | 2023-05-19 19:11 | P.PN ---
Progress Note - Text Patient received IV ibutilide 1 mg over 10-15 minutes IV magnesium administered Patient underwent electrical cardioversion intraprocedure Plan avoid QT prolonging drugs for 24 hours Avoid Zofran and Compazine EKG tomorrow
--- NOTE | 2023-05-19 19:17 | P.PRLE ---
RE: Janeen Hernández Dear Kirk Vernon underwent an A. fib ablation with pulmonary vein isolation and ablation of the left atrial roof and posterior wall Intracardiac echo intraoperatively revealed evidence of chronic exudative pericarditis It is quite likely that viral pericarditis has contributed significantly to her refractory atrial fibrillation She tolerated the procedure well without any acute complications Suggest Continue anticoagulation I will watch for sinus bradycardia
[2023-05-19] MEDS ORDERED: ACETAMINOPHEN IV (For NPO) 1,000 MG in EMPTY BAG 1 BAG IVPB ONE (20:15)
[2023-05-19] MEDS: LACTATED RINGERS 1,000 ML IV SCH (20:37)
[2023-05-19] MEDS: APIXABAN 5 MG TAB PO SCH (21:22)
[2023-05-20] MEDS: LACTATED RINGERS 1,000 ML IV SCH (06:42)
--- NOTE | 2023-05-20 09:34 | P.DS ---
Providers Date of admission: May 19 Attending physician: Newton Vargas Primary care physician: [facility] Course: The patient is 72-year-old female who underwent atrial fibrillation ablation yesterday with Dr. Vargas. The patient had a successful pulmonary vein isolation, left atrial roof, and left atrial posterior wall. Ablation. Patient was noted to have thickened pericardium with chronic exudative pericarditis. Postprocedure the patient had bradycardia in the 50s, therefore her beta karissa is currently being held. The patient was interviewed and examined resting comfortably in bed. She states she did well overnight. Mild sore throat. No chest pain or chest pressure. No orthopnea. GENERAL: Well-appearing, well-nourished and in no acute distress. NECK: Supple without JVD or thyromegaly. LUNGS: Breath sounds clear to auscultation bilaterally. Respiration equal and unlabored. No wheezes, rales or rhonchi. HEART: Regular rate and rhythm without murmurs, rubs or gallops. S1 and S2 heard. EXTREMITIES: Normal range of motion, no edema. No clubbing or cyanosis. Peripheral pulses intact and strong. Bilateral groin sites are clean, dry, and intact. TELEMETRY: Sinus rhythm overnight. Heart rates in the 50s to 60s. IMPRESSION: Persistent atrial fibrillation Status post pulmonary vein isolation, left atrial roof and left atrial posterior wall ablation Sinus bradycardia Chronic pericarditis PLAN: Continue anticoagulation Beta karissa to be held at discharge Patient may be discharged by 5 PM today I am dictating on behalf of Dr Newton Vargas's history/physical and assessment/plan. Plan - Discharge Summary Discharge Rx Participant: Yes New Discharge Prescriptions: No Action Apixaban [Eliquis] 5 mg PO BID #60 tab Metoprolol Tartrate [Lopressor] 25 mg PO BID Discharge Medication List Apixaban [Eliquis] 5 mg PO BID #60 tab 08/21/18 [Rx] Metoprolol Tartrate [Lopressor] 25 mg PO BID 10/02/18 [History]
[2023-05-20] MEDS: APIXABAN 5 MG TAB PO SCH (09:38)
[2023-05-20 14:04] VITALS: BP 99/63; PULSE 69; RESP 16; TEMP 98.2
== END 2023-05-20 16:50 | disposition home or self-care (01) ==
LOC: CATHEP 12:40 → 6NMEDSUR 18:53 → CATHEP 05-20 16:50
PROVIDERS: ATTEND Internal Medicine Clinical Cardiac Electrophysiology
DX: I48.19 Other persistent atrial fibrillation (principal); I31.9 Disease of pericardium, unspecified; I42.9 Cardiomyopathy, unspecified; Z86.73 Personal history of transient ischemic attack (TIA), and cerebral infarction without residual deficits; Z79.01 Long term (current) use of anticoagulants; E03.9 Hypothyroidism, unspecified; Z79.899 Other long term (current) drug therapy
CPT/HCPCS: 93656; 93657; 93623; 86900; 86901; 86850; C1894 ×2; C1769 ×3; C1760; C1730 ×2; C1759; C1893; C1733; C1766; J2250; J0330; J1644 ×2; J2001 ×2; J1742; J3010; J3475; J2370; J2704; Q9967

== ENCOUNTER 2023-06-27 06:25 | Day surgery (SDC) | payer MEDICARE ==
[~2023-06-27 06:25] MED LIST changes: -AMIODARONE 100 MG TAB PO SCH; -BENZOCAINE SPRAY 1 CAN MUCOUS MEM ONE; +LIDOCAINE 1% (10MG/ML) FOR IV START INTRADERMA PRN; -LISINOPRIL 5 MG TAB PO SCH; -PROPOFOL 10 MG/ML 20 ML VIAL IV ONE; -SODIUM CHLORIDE 0.9% 1,000 ML IV SCH; -fentaNYL (PF) 50 MCG/ML 2 ML AMP IVP ONE; -fentaNYL (PF) 50 MCG/ML 2 ML AMP ONE
[2023-06-27 07:11] VITALS: TEMP 98.2
[2023-06-27] MEDS ORDERED: LIDOCAINE 2% INJ 20 MG/ML (2 ML VIAL) ONE (07:35)
[2023-06-27] MEDS ORDERED: PROPOFOL 10 MG/ML 20 ML VIAL IV ONE (07:35)
[2023-06-27 07:38] LABS: African American GFR (CKD) 72 (>60 ml/min/1.73 sqM); Anion Gap 9 mmol/L; Blood Urea Nitrogen 23 mg/dL (7-17); Calcium 9.2 mg/dL (8.4-10.2); Carbon Dioxide 26 mmol/L (22-30); Chloride 104 mmol/L (98-107); Glucose 98 mg/dL (74-99); Non-African American GFR(CKD) 62 (>60 ml/min/1.73 sqM); Potassium 4.2 mmol/L (3.5-5.1); Sodium 139 mmol/L (137-145)
--- NOTE | 2023-06-27 07:43 | P.PCN ---
Description of Procedure: Procedure performed: Synchronized cardioversion Moderate conscious sedation: Moderate conscious sedation was supplied by anesthesia, see separate report. Complications: none Indications: Atrial flutter with RVR PROCEDURE: After the risks, benefits and alternatives of the above mentioned procedure was explained in detail with the patient, informed consent was obtained. Patient was brought to the lab in a fasting state. Patient had taken anticoagulation for a full 30 days without any missed doses. Patient was given sedation by anesthesia. Patient underwent synchronized cardioversion x 1 with 150J with resultant sinus rhythm. Patient tolerated the procedure well. Patient was transferred to the post procedure area in stable and satisfactory condition.
[2023-06-27 08:05] VITALS: RESP 16
[2023-06-27 09:04] VITALS: BP 117/77; PULSE 76
== END 2023-06-27 09:25 | disposition home or self-care (01) ==
LOC: OR 06:25
PROVIDERS: ATTEND Internal Medicine
DX: I48.92 Unspecified atrial flutter (principal); Z79.01 Long term (current) use of anticoagulants; Z79.899 Other long term (current) drug therapy
CPT/HCPCS: 92960; 80048; J2704; J2001

== ENCOUNTER → 2024-01-03 | Outpatient (CLI) | payer MEDICARE ==
--- NOTE | 2024-01-04 11:25 | MM ---
Reason for Exam: Screening (asymptomatic). Last mammogram was performed 1 year(s) and 1 month(s) ago. Patient History: Menarche at age 9. First Full-Term at age 25. Postmenopausal. Sister had breast cancer, age 42. Mother had breast cancer, age 79. Risk Values: Roxy 5 year model risk: 6.7%. NCI Lifetime model risk: 14.8%. Prior Study Comparison: 03/14/2013 Bilateral Screening Mammogram, [facility]. 09/17/2021 Bilateral Screening Mammogram, [facility]. 12/14/2022 Bilateral MG screening mammo w CAD, [facility]. Tissue Density: The breast tissue is heterogeneously dense. This may lower the sensitivity of mammography. Findings: Analyzed By CAD. There is no suspicious group of microcalcifications or new suspicious mass. Benign-appearing calcifications bilaterally. Overall Assessment: Benign, BI-RAD 2 Management: Screening Mammogram of both breasts in [address] [facility] will attempt to contact patient to return for supplemental views and ultrasound if indicated. Patient should continue monthly self-breast exams. A clinical breast exam by your physician is recommended on an annual basis. This exam should not preclude additional follow-up of suspicious palpable abnormalities. Note on Roxy scores and lifetime risk: 1. A Roxy score greater than 3% is considered moderate risk. If this is the case, consider specialist referral to assess eligibility for a risk reducing agent. 2. If overall lifetime risk for the development of breast cancer is 20% or higher, the patient may qualify for future screening with alternating mammogram and breast MRI. Electronically signed and approved by: Patel Olmedo DO
== END | disposition home or self-care (01) ==
LOC: RADMAMWWP 12:30
PROVIDERS: ATTEND Family Medicine
DX: Z12.31 Encounter for screening mammogram for malignant neoplasm of breast (principal); Z80.3 Family history of malignant neoplasm of breast; Z78.0 Asymptomatic menopausal state
CPT/HCPCS: 77067

== ENCOUNTER → 2024-10-31 | Day surgery (SDC) | payer MEDICARE ==
[2024-10-30 12:55] VITALS: BMI 29.5
[~2024-10-31] MED LIST changes: -LACTATED RINGERS 1,000 ML IV SCH; -LIDOCAINE 1% (10MG/ML) FOR IV START INTRADERMA PRN; +LIDOCAINE 1% INJ 10MG/ML (20 ML MDV) ONE; +PROPOFOL 10 MG/ML 20 ML VIAL IV ONE
[2024-10-31 06:48] VITALS: TEMP 97.9
[2024-10-31] MEDS: SODIUM CHLORIDE 0.9% 500 ML 500 ML IV SCH (06:50)
[2024-10-31] MEDS: IV FLUID CONTINUATION 1,000 ML IV ONE (06:51)
[2024-10-31 06:59] LABS: African American GFR (CKD) 70 (>60 ml/min/1.73 sqM); Anion Gap 5 mmol/L; Blood Urea Nitrogen 16 mg/dL (7-17); Carbon Dioxide 26 mmol/L (22-30); Chloride 109 mmol/L (98-107); Glucose 103 mg/dL (74-99); Non-African American GFR(CKD) 61 (>60 ml/min/1.73 sqM); Potassium 4.1 mmol/L (3.5-5.1); Sodium 140 mmol/L (137-145)
--- NOTE | 2024-10-31 07:38 | P.TEE ---
Description of Procedure(s): Procedure performed: Transesophageal Echocardiogram with color flow doppler, pulsed wave doppler and continuous wave doppler, synchronized cardioversion Moderate conscious sedation: Moderate conscious sedation was supplied by anesthesia, see separate report. Complications: none Indications: atrial flutter PROCEDURE: After the risks, benefits and alternatives of the above mentioned procedure was explained in detail with the patient, informed consent was obtained. Patient was brought to the lab in a fasting state. Patient was given sedation by anesthesia, see separate report. The throat was sprayed with Hurricane to anesthetize the throat. A lubricated Omni probe was then introduced into the esophagus and stomach and multiple views were obtained. 2D echo with color flow doppler, pulsed wave doppler and continuous wave doppler was utilized. The probe was then removed. There was no thrombus noted and therefore patient underwent synchronized cardioversion x 1 with 200J with resultant sinus rhythm. Patient tolerated the procedure well. Patient was transferred to the post procedure area in stable and satisfactory condition. FINDINGS: 1. The aortic valve is tricuspid and function normally. 2. The mitral valve appears be normal with mild regurgitation. 3. Tricuspid valve appears to be normal. 4. Left ventricular EF 40% with global hypokinesis 5. Left atrial appendage is free of clot.
[2024-10-31 08:58] VITALS: RESP 14
--- NOTE | 2024-10-31 09:10 | P.PN ---
Progress Note - Text Patient with brief episode of repeat SVT/atrial flutter with heart rate in the 130s. Asymptomatic. Back in normal sinus rhythm. Discussed continuing with current medications including metoprolol. If she has recurrent persistent flutter may need to start antiarrhythmics. Stable for DC.
[2024-10-31 09:29] VITALS: BP 105/71; PULSE 61
== END ==
LOC: OR 05:52
PROVIDERS: ATTEND Internal Medicine
DX: I48.92 Unspecified atrial flutter (principal); I47.10 Supraventricular tachycardia, unspecified; I48.0 Paroxysmal atrial fibrillation; E03.9 Hypothyroidism, unspecified; E78.5 Hyperlipidemia, unspecified; I48.3 Typical atrial flutter; G47.33 Obstructive sleep apnea (adult) (pediatric); Z86.73 Personal history of transient ischemic attack (TIA), and cerebral infarction without residual deficits; Z79.01 Long term (current) use of anticoagulants; Z79.899 Other long term (current) drug therapy
CPT/HCPCS: 93312; 93320; 93325; 92960; 80048; 99152; 99153; J2003; J2704